=== PATIENT | female | born 1970 | race Caucasian/White ===

== ENCOUNTER 2021-11-13 12:40 | Emergency (ER) | payer OTHER, SELFPAY ==
[2021-11-13 12:46] VITALS: BP 144/81; PULSE 71; RESP 16; TEMP 36.6; O2SAT 100
--- NOTE | 2021-11-13 13:03 | ED.EAR ---
HPI - Ear Problem General Chief complaint: Ear Stated complaint: Ear Pain/Sore Throat Time Seen by Provider: 11/13/21 13:04 Source: patient Mode of arrival: ambulatory Limitations: no limitations History of Present Illness HPI Narrative: 51-year-old female presents with complaint of nasal congestion, runny nose, headache, body aches, right ear pain, sore throat for 2 to 3 days. States that she missed work yesterday. Had 2 negative COVID test so she returned to work this morning and he could only make it mcc through her shift. Reports that she is too tired to work today. Reports that she has had 4 people at her work that have tested positive for COVID. 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 Is taking Mucinex to treat her symptoms. All systems reviewed and negative except as noted above. Related Data Home Medications Medication Instructions Recorded Confirmed No Home Medications 11/13/21 11/13/21 Allergies Allergy/AdvReac Type Severity Reaction Status Date / Time Penicillins Allergy Unknown Swelling Verified 11/13/21 12:58 Review of Systems Review of Systems: CONSTITUTIONAL: Denies fever, chills, or sweats. Reports fatigue. EYES: Denies visual changes, redness, or discharge. ENT: Reports rhinorrhea, congestion, sore throat, and right ear pain CARDIOVASCULAR: Denies chest pain, palpitations, or edema. RESPIRATORY: Reports cough. Denies dyspnea. GASTROINTESTINAL: Denies abdominal pain, nausea, vomiting, or diarrhea. GENITOURINARY: Denies dysuria or hematuria. SKIN: Denies rash or itching. MUSCULOSKELETAL: Denies back pain, joint pain. Reports myalgia. NEUROLOGIC: Denies headache, numbness, or weakness. PSYCHIATRIC: Denies anxiety or depression. All other systems reviewed are negative, except as documented in HPI. [facility] Past Medical History Medical History (Updated 11/14/21 @ 00:00 by Background Daemon) Depression Surgical History Surgical History (Updated 04/28/19 @ 19:35 by Marlene Varela NP) H/O tubal ligation Social History Social History (Updated 04/28/19 @ 19:37 by Marlene Varela NP) Smoking packs per day: 0.5 Smoking cigarettes per day: 10.0 Smoking status: Current every day smoker Comments At time of signature, agree with nursing past medical, surgical, social and family history. There is no relevant family history pertinent to the presenting complaint. Exam Narrative: GENERAL: This is a well-nourished, well-developed patient. Patient is ill-appearing but in no distress. HEAD: normocephalic, atraumatic. EYES: PERRL. Sclera clear/white. Vision is grossly intact. EARS: External ears normal, auditory canals clear and without drainage, TMs normal without perforation. Hearing grossly intact. NOSE: External nose normal with clear nasal drainage. Mild congestion with erythema to both nares. THROAT: Mucous membranes moist, mild erythema to posterior pharynx with clear postnasal drainage. NECK: Neck supple, non-tender without lymphadenopathy, masses or thyromegaly. CARDIOVASCULAR: Regular rate and rhythm without murmurs, gallops, or rubs. RESPIRATORY: Clear to auscultation. Breath sounds equal bilaterally. No wheezes, rales, or rhonchi. SKIN: warm, Dry, intact with no suspicious lesions or rash, good texture and turgor. NEURO: awake, alert, and oriented to person, place and time. There were no obvious focal neurologic abnormalities. EXTREMITIES: No joint tenderness, effusion, or edema noted. Course Course Level of Care: Express Care Visit Vital Signs Vital signs: Vital Signs Temperature 36.6 C 11/13/21 12:46 Pulse Rate 71 11/13/21 12:46 Respiratory Rate 16 11/13/21 12:46 Blood Pressure 144/81 H 11/13/21 12:46 Pulse Oximetry 100 11/13/21 12:46 Oxygen Delivery Room Air 11/13/21 12:46 Temperature 36.6 C 11/13/21 12:46 Pulse Rate 71 11/13/21 12:46 Respiratory Rate 16 11/13/21 12:46 Blood Pressure 144/81 H
== END 2021-11-13 13:44 | disposition home or self-care (01) ==
PROVIDERS: Emergency Provider Nurse Practitioner Family
DX: J06.9 Acute upper respiratory infection, unspecified (principal); Z20.822 Contact with and (suspected) exposure to COVID-19; F17.210 Nicotine dependence, cigarettes, uncomplicated
CPT/HCPCS: 87426; 99213; C9803; G0463

== ENCOUNTER 2022-07-01 08:43 | Outpatient (CLI) | payer OTHER, SELFPAY ==
[2022-07-01 18:44] LABS: Basophils Percent Auto 0.5 % (0.2-1.2); Eosinophils Absolute Auto 0.1 K/mm3 (0-0.3); Eosinophils Percent Auto 2.1 % (0-4.4); Hematocrit 43.8 % (37.0-47.0); Hemoglobin 14.1 g/dL (12.0-15.0); Immature Granulocyte Absolute 0.02 K/mm3 (0.00-0.031); Immature Granulocyte Percent A 0.3 % (0-0.5); Lymphocytes Absolute Auto 1.29 K/mm3 (0.9-3.2); Lymphocytes Percent Auto 22.1 % (18.3-44.2); Mean Corpuscular HGB Conc 32.2 g/dl (32-36); Mean Corpuscular Hemoglobin 31.4 pg (26-34); Mean Corpuscular Volume 97.6 fl (80-100); Mean Platelet Volume 12.2 fl (7.4-10.4); Monocytes Absolute Auto 0.4 K/mm3 (0.1-0.6); Monocytes Percent Auto 7.2 % (2.6-8.5); Neutrophils Percent Auto 67.8 % (45.5-73.1); Platelet Count Result 199 k/mm3 (150-375); Red Blood Count 4.49 M/mm3 (4.2-5.4); Red Cell Distribution Width 14.5 % (11.5-14.5); White Blood Count 5.9 K/mm3 (4.5-10.0)
[2022-07-01 18:55] LABS: Alanine Aminotransferase 13 U/L (6-35); Albumin Level 4.3 g/dL (3.5-5.1); Alkaline Phosphatase 89 U/L (38-126); Anion Gap 3 mmol/L (8-16); Aspartate Amino Transferase 40 U/L (14-36); Bilirubin,Total 0.4 mg/dL (0.2-1.3); Blood Urea Nitrogen 8 mg/dL (7-17); Calcium 9.1 mg/dL (8.4-10.2); Carbon Dioxide 30 mmol/L (22-30); Chloride 103 mmol/L (98-107); Cholesterol 210 mg/dL (0-200); Estimated Glomerular Filt Rate 59; Glucose 87 mg/dL (65-110); HDL Direct 34 mg/dL; Potassium 4.3 mmol/L (3.4-5.0); Sodium 136 mmol/L (137-145); Triglycerides 140 mg/dL (<150)
[2022-07-01 19:06] LABS: LDL Cholesterol Direct 106 mg/dL
== END 2022-07-01 08:44 | disposition home or self-care (01) ==
LOC: ANHBWCLAB 08:44
PROVIDERS: PCP Family Medicine; Visit Provider Family Medicine
DX: Z00.00 Encounter for general adult medical examination without abnormal findings (principal)
CPT/HCPCS: 36415; 80053; 80061; 85025

== ENCOUNTER 2022-12-30 09:16 | Outpatient (CLI) | payer OTHER, SELFPAY ==
[2022-12-30 19:01] LABS: Appearance Urine Cloudy (Clear); Bacteria Urine 4+ /hpf; Bilirubin Urine Negative (Negative); Blood Urine 2+ (Negative); Color Urine Yellow (Yellow); Glucose Urine UA Negative (Negative); Ketones Urine Negative (Negative); Leukocyte Esterase Ur 3+ LEU/UL (NEGATIVE); Nitrate Urine Negative (Negative); Non Pathogenic Casts 0-2; Protein Urine Negative (Negative); RBC Urine 0-2 /hpf (0-2); Specific Grav Ur 1.008 (1.001-1.035); Squamous Epithelial Cell Urine None seen /hpf (Few); Urobilinogen Urine 0.2 mg/dL (<2.0); WBC Urine >100 /hpf (0-3); pH Urine 6.5 (5.0-9.0)
[2022-12-30 19:07] LABS: Add Urine Microscopic? YES
== END 2022-12-30 09:17 | disposition home or self-care (01) ==
LOC: ANHBWCLAB 09:17
PROVIDERS: PCP Family Medicine; Visit Provider Nurse Practitioner Adult Health
DX: R39.9 Unspecified symptoms and signs involving the genitourinary system (principal)
CPT/HCPCS: 81001

== ENCOUNTER 2023-10-13 08:25 | Outpatient (CLI) | payer OTHER, SELFPAY ==
[2023-10-13 19:11] LABS: Alanine Aminotransferase 12 U/L (6-35); Albumin Level 4.1 g/dL (3.5-5.1); Alkaline Phosphatase 80 U/L (38-126); Anion Gap 2 mmol/L (4-12); Aspartate Amino Transferase 58 U/L (14-36); Bilirubin,Total 0.5 mg/dL (0.2-1.3); Blood Urea Nitrogen 13 mg/dL (7-17); Calcium 8.8 mg/dL (8.4-10.2); Carbon Dioxide 28 mmol/L (22-30); Chloride 108 mmol/L (98-107); Cholesterol 199 mg/dL (0-200); Estimated Glomerular Filt Rate 59; Glucose 86 mg/dL (65-110); HDL Direct 37 mg/dL; Potassium 4.2 mmol/L (3.4-5.0); Sodium 138 mmol/L (137-145); Triglycerides 90 mg/dL (<150)
[2023-10-13 19:22] LABS: LDL Cholesterol Direct 120 mg/dL
[2023-10-13 19:48] LABS: Basophils Percent Auto 0.4 % (0.2-1.2); Eosinophils Absolute Auto 0.2 K/mm3 (0-0.3); Eosinophils Percent Auto 3.5 % (0-4.4); Hematocrit 40.5 % (37.0-47.0); Hemoglobin 12.9 g/dL (12.0-15.0); Immature Granulocyte Absolute 0.01 K/mm3 (0.00-0.031); Immature Granulocyte Percent A 0.2 % (0-0.5); Lymphocytes Absolute Auto 1.08 K/mm3 (0.9-3.2); Lymphocytes Percent Auto 23.3 % (18.3-44.2); Mean Corpuscular HGB Conc 31.9 g/dl (32-36); Mean Corpuscular Volume 97.4 fl (80-100); Mean Platelet Volume 11.7 fl (7.4-10.4); Monocytes Absolute Auto 0.4 K/mm3 (0.1-0.6); Monocytes Percent Auto 7.8 % (2.6-8.5); Neutrophils Percent Auto 64.8 % (45.5-73.1); Platelet Count Result 195 k/mm3 (150-375); Red Blood Count 4.16 M/mm3 (4.2-5.4); Red Cell Distribution Width 14.6 % (11.5-14.5); White Blood Count 4.6 K/mm3 (4.5-10.0)
[2023-10-13 20:14] LABS: Folic Acid 16.1 ng/mL (2.76->20)
[2023-10-13 21:03] LABS: Erythrocyte Sedimentation Rate 20 mm/hr (0-20)
[2023-10-15 13:53] LABS: ANA Cascade Screen POSITIVE (NEGATIVE); Chromatin (Nucleosomal) Ab >8.0 POS AI (<1.0 NEG); Chromatin Antibody Charge YES; DNA (ds) Antibody Charge YES; RNP Antibody >8.0 POS AI (<1.0 NEG); RNP Antibody Charge YES; Sm Antibody >8.0 POS AI (<1.0 NEG); Sm Antibody Charge YES; Sm/RNP Antibody >8.0 POS AI (<1.0 NEG); Sm/RNP Antibody Charge YES
== END 2023-10-13 08:26 | disposition home or self-care (01) ==
LOC: ANHBWCLAB 08:27
PROVIDERS: PCP Nurse Practitioner Adult Health; Visit Provider Nurse Practitioner Adult Health
DX: Z13.9 Encounter for screening, unspecified (principal); I73.00 Raynaud's syndrome without gangrene
CPT/HCPCS: 36415; 80053; 80061; 82607; 82746; 84443; 85025; 85652; 86038; 86225; 86235; 86364

== ENCOUNTER 2023-11-10 07:47 | Outpatient (CLI) | payer OTHER, SELFPAY ==
--- NOTE | ~2023-11-10 | XR_ITS ---
Right wrist Technique: PA and lateral views were obtained. Clinical History: Joint pain Findings: No acute fracture or dislocation is seen. Osseous alignment is anatomic. Joint spaces are p reserved. Soft tissues are unremarkable. Impression: Unremarkable right wrist radiographs. Reviewed, dictated and finalized at location M. Impression: Unremarkable right wrist radiographs.
--- NOTE | ~2023-11-10 | XR_ITS ---
Left ankle Technique: AP and lateral views were obtained. Clinical History: Pain Findings: No acute fracture or dislocation is seen. Osseous alignment is anatomic. Ankle mortise and other visualized joint spaces are preserved. Soft tissues are otherwise unremarkable. Impression: Unremarkable left ankle. Reviewed, dictated and finalized at location . Impression: Unremarkable left ankle.
--- NOTE | ~2023-11-10 | XR_ITS ---
Right Hand Technique: PA and lateral views were obtained. Clinical History: Joint pain Findings: No acute fracture or dislocation is seen. Osseous alignment is anatomic. Joint spaces are p reserved. Soft tissues are unremarkable. Impression: Unremarkable right hand. Reviewed, dictated and finalized at location M. Impression: Unremarkable right hand.
--- NOTE | ~2023-11-10 | XR_ITS ---
Right foot Technique: AP and lateral views were obtained. Clinical History: Joint pain Findings: No acute fracture or dislocation is seen. Osseous alignment is anatomic. Joint spaces are p reserved without erosive or degenerative change. Soft tissues are unremarkable. Impression: Unremarkable right foot radiographs. Reviewed, dictated and finalized at location . Impression: Unremarkable right foot radiographs.
--- NOTE | ~2023-11-10 | XR_ITS ---
Left wrist Technique: PA and lateral views were obtained. Clinical History: Joint pain Findings: No acute fracture or dislocation is seen. Osseous alignment is anatomic. There is mild dege nerative change of the first CMC joint. Soft tissues are unremarkable. Impression: Mild degenerative change of the first CMC joint. Reviewed, dictated and finalized at location . Impression: Mild degenerative change of the first CMC joint.
--- NOTE | ~2023-11-10 | XR_ITS ---
AP and oblique views of the bilateral SI joints Clinical history joint pain FINDINGS: There is probable mild osteophytic changes bilateral SI joints. No erosive change or sclero sis. Bilateral hip joints are intact. Soft tissues are unremarkable. IMPRESSION: Mild degenerative change of both SI joints. Reviewed, dictated and finalized at location .
--- NOTE | ~2023-11-10 | XR_ITS ---
Right ankle Technique: AP and lateral views were obtained. Clinical History: Joint pain Findings: No acute fracture or dislocation is seen. Osseous alignment is anatomic. Ankle mortise and other visualized joint spaces are preserved. Soft tissues are otherwise unremarkable. Impression: Unremarkable right ankle. Reviewed, dictated and finalized at location . Impression: Unremarkable right ankle.
--- NOTE | ~2023-11-10 | XR_ITS ---
Left foot Technique: AP and lateral views were obtained. Clinical History: Joint pain Findings: No acute fracture or dislocation is seen. Osseous alignment is anatomic. Joint spaces are p reserved without erosive or degenerative change. Soft tissues are unremarkable. Impression: Unremarkable left foot radiographs. Reviewed, dictated and finalized at location . Impression: Unremarkable left foot radiographs.
[2023-11-10 19:19] LABS: Basophils Percent Auto 0.5 % (0.2-1.2); Eosinophils Absolute Auto 0.2 K/mm3 (0-0.3); Eosinophils Percent Auto 3.7 % (0-4.4); Hematocrit 42.7 % (37.0-47.0); Hemoglobin 13.8 g/dL (12.0-15.0); Immature Granulocyte Absolute 0.01 K/mm3 (0.00-0.031); Immature Granulocyte Percent A 0.2 % (0-0.5); Lymphocytes Absolute Auto 1.38 K/mm3 (0.9-3.2); Lymphocytes Percent Auto 24.2 % (18.3-44.2); Mean Corpuscular HGB Conc 32.3 g/dl (32-36); Mean Corpuscular Hemoglobin 31.2 pg (26-34); Mean Corpuscular Volume 96.4 fl (80-100); Mean Platelet Volume 11.9 fl (7.4-10.4); Monocytes Absolute Auto 0.4 K/mm3 (0.1-0.6); Neutrophils Absolute Auto 3.7 K/mm3 (1.3-6.7); Neutrophils Percent Auto 64.4 % (45.5-73.1); Platelet Count Result 201 k/mm3 (150-375); Red Blood Count 4.43 M/mm3 (4.2-5.4); Red Cell Distribution Width 14.3 % (11.5-14.5); White Blood Count 5.7 K/mm3 (4.5-10.0)
[2023-11-10 19:19] LABS: Appearance Urine Clear (Clear); Bilirubin Urine Negative (Negative); Blood Urine Negative (Negative); Color Urine Yellow (Yellow); Glucose Urine UA Negative (Negative); Ketones Urine Negative (Negative); Leukocyte Esterase Ur Negative LEU/UL (Negative); Nitrate Urine Negative (Negative); Protein Urine Negative (Negative); Specific Grav Ur 1.016 (1.001-1.035); Urobilinogen Urine 0.2 mg/dL (<2.0); pH Urine 5.5 (5.0-9.0)
[2023-11-10 19:20] LABS: Add Urine Microscopic? NO
[2023-11-10 19:29] LABS: Alanine Aminotransferase 14 U/L (6-35); Albumin Level 4.3 g/dL (3.5-5.1); Alkaline Phosphatase 83 U/L (38-126); Anion Gap 5 mmol/L (4-12); Aspartate Amino Transferase 35 U/L (14-36); Bilirubin,Total 0.3 mg/dL (0.2-1.3); Blood Urea Nitrogen 13 mg/dL (7-17); CRP < 0.5 mg/dL (<1.0); Calcium 9.1 mg/dL (8.4-10.2); Carbon Dioxide 28 mmol/L (22-30); Chloride 106 mmol/L (98-107); Creatine Kinase 61 U/L (30-135); Estimated Glomerular Filt Rate > 60; Glucose 84 mg/dL (65-110); Sodium 139 mmol/L (137-145); Uric Acid 4.3 mg/dL (2.5-7.5)
[2023-11-10 20:04] LABS: Erythrocyte Sedimentation Rate 14 mm/hr (0-20)
[2023-11-10 20:15] LABS: Hepatitis B Surface Anti Res Negative; Hepatitis C Virus Antibody Negative (Negative)
[2023-11-11 01:08] LABS: Complement C3 91 mg/dL (88-165)
[2023-11-11 12:22] LABS: ANA Cascade Screen POSITIVE (NEGATIVE); Chromatin (Nucleosomal) Ab >8.0 POS AI (<1.0 NEG); Chromatin Antibody Charge YES; DNA (ds) Antibody Charge YES; RNP Antibody >8.0 POS AI (<1.0 NEG); RNP Antibody Charge YES; Sm Antibody >8.0 POS AI (<1.0 NEG); Sm Antibody Charge YES; Sm/RNP Antibody >8.0 POS AI (<1.0 NEG); Sm/RNP Antibody Charge YES
[2023-11-11 14:44] LABS: Aldolase 3.2 U/L (< OR = 8.1)
[2023-11-12 13:46] LABS: Rapid Plasma Reagin Non-Reactive (NonReactive)
[2023-11-23 07:10] LABS: Reference Lab Test Name RNA Polymerase III
[2023-11-23 07:11] LABS: Reference Lab Test Result <20 Units
== END 2023-11-10 07:48 | disposition home or self-care (01) ==
PROVIDERS: PCP Nurse Practitioner Adult Health; Visit Provider Internal Medicine
DX: M46.1 Sacroiliitis, not elsewhere classified (principal); M19.042 Primary osteoarthritis, left hand; M19.032 Primary osteoarthritis, left wrist
CPT/HCPCS: 36415; 72202; 73100; 73120; 73600; 73620; 80053; 81003; 82085; 82550; 84550; 85025; 85652; 86038; 86140; 86160; 86225; 86235; 86364; 86592; 86706; 86803

== ENCOUNTER 2023-12-11 00:20 | Day surgery (SDC) | payer OTHER, SELFPAY ==
--- NOTE | 2023-11-10 14:35 | SUR.PREOP ---
Patient called to reschedule her procedure due to doctor being unavailable. Message left on pt's vm requesting a call back.
--- NOTE | 2023-11-13 09:35 | SUR.PREOP ---
Patient called to reschedule her appointment. Message left for patient to return call.
--- NOTE | 2023-11-16 10:00 | SUR.PREOP ---
Called patient regarding her procedure on 12/17. Message left requesting a call back.
--- NOTE | 2023-11-19 11:48 | SUR.PREOP ---
Message sent through the portal asking pt to call us so we can reschedule her appointment.
[2023-11-24 14:02] VITALS: BMI 25.4
[2023-12-11] MEDS: LACTATED RINGERS 1,000 ML 150 ML IV CONT (07:48)
[2023-12-11 07:50] VITALS: BP 121/95; PULSE 84; RESP 16; TEMP 36.3; O2SAT 100
--- NOTE | 2023-12-11 08:21 | WPDANESEPPF ---
Anes - Initial Pre Proc Eval Procedure: Operation Date: 12/11/23 09:00 Proposed Procedures p Esophagogastroduodenoscopy - Oskar Lei MD Date/Time: 12/11/23 08:21 Surgeon: Oskar Lei MD Pre Op Diagnosis: GERD without esophagitis Patient Data Age: 53 Gender: F Height: 1.75 m Weight: 77 kg Last Vital Signs Temp 97.4 F L 12/11/23 07:50 Pulse 84 12/11/23 07:50 Resp 16 12/11/23 07:50 BP 121/95 H 12/11/23 07:50 Pulse Ox 100 12/11/23 07:50 O2 Del Method Room Air 12/11/23 07:50 Allergies Allergy/AdvReac Type Severity Reaction Status Date / Time Penicillins Allergy Severe Swelling Verified 12/11/23 07:49 Home Medications Medication Instructions Recorded Confirmed Type Multi Vitamin 1 tab-cap BYMOUTH DAILY 07/01/22 11/24/23 History pantoprazole 40 mg tablet,delayed 40 mg PO QAM #30 tabs 06/09/23 11/24/23 Rx release (Protonix) Patient hx anesthesia problems: none Family hx anesthesia problems: none Results Review: All pre-operative results and documents have been reviewed as part of the pre-operative evaluation. [facility] Past Medical History Medical History (Updated 10/15/23 @ 14:13 by Rachna Lema APRN) Depression Surgical History Surgical History (System 05/15/22 @ 14:23 by Maria Ines Amezcua) H/O tubal ligation Family History Family History (Updated 07/01/22 @ 07:56 by Chaya Prince MA) Father Hypertension Depression Heart disease Mother Depression Heart disease Epilepsy Grandparent Diabetes mellitus Cancer Social History Social History (Updated 07/01/22 @ 07:58 by Chaya Prince MA) Smoking packs per day: 0.5 Smoking cigarettes per day: 10.0 Years smoked: 25 Smoking pack-years: 12.50 Smoking status: Current every day smoker Tobacco type: cigarettes Alcohol intake: current Alcohol use details: once a month Substance use: never Substance use type: does not use Lack of Transportation: No Lack of Food: Never True Current Housing: I Have Housing Concerned About Future Housing: No Difficulty Paying Gas/Electric Bills: No Difficulty Paying for Meds: No Currently Unemployed: No Education: Trade/Vocational Certificate Difficulty w/ Childcare or Family Care: No Living arrangements: with family Occupation/Education: occupation 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 Gender identity (if verbalized by the patient): Female Spiritual care concerns: No Agree to blood products: Yes Anes - Eval Final PreProcedure Day of Procedure 12/11/23 08:21 Patient weight: normal Heart: regular rate and rhythm Lungs: clear to auscultation Airway: Mallampati scale class II Neurological: alert and oriented Last oral intake: >/= 8 hours ASA classification: III Emergent: no Anesthetic plan: proceed Anesthesia type and monitoring: general GIVS and standard monitoring Results Review: All pre-operative results and documents have been reviewed as part of the pre-operative evaluation. Informed Consent: The patient's anesthetic plan and its attendant risks and benefits were discussed with the patient/family/POA. Questions were solicited and answers provided to the satisfaction of the patient/family/POA.
--- NOTE | 2023-12-11 08:22 | PM.HPGS ---
History of Present Illness History of Present Illness Consent: Risks, benefits, and alternatives have been discussed and questions answered. Patient agrees to proceed with procedure. Chief complaint: GERD without esophagitis Narrative: Yuliana Nogueira is a 53 year old female with gerd for over a year but last few months more symptomatic waking up at night despite using protonix daily, never had egd Review of Systems Review of Systems: All systems reviewed & are unremarkable except as noted in HPI and below PMFSH Past Medical History Medical History (Updated 10/15/23 @ 14:13 by Rachna Lema APRN) Depression Surgical History Surgical History (System 05/15/22 @ 14:23 by Maria Ines Amezcua) H/O tubal ligation Family History Family History (Updated 07/01/22 @ 07:56 by Chaya Prince MA) Father Hypertension Depression Heart disease Mother Depression Heart disease Epilepsy Grandparent Diabetes mellitus Cancer Social History Social History (Updated 07/01/22 @ 07:58 by Chaya Prince MA) Smoking packs per day: 0.5 Smoking cigarettes per day: 10.0 Years smoked: 25 Smoking pack-years: 12.50 Smoking status: Current every day smoker Tobacco type: cigarettes Alcohol intake: current Alcohol use details: once a month Substance use: never Substance use type: does not use Lack of Transportation: No Lack of Food: Never True Current Housing: I Have Housing Concerned About Future Housing: No Difficulty Paying Gas/Electric Bills: No Difficulty Paying for Meds: No Currently Unemployed: No Education: Trade/Vocational Certificate Difficulty w/ Childcare or Family Care: No Living arrangements: with family Occupation/Education: occupation 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 Gender identity (if verbalized by the patient): Female Spiritual care concerns: No Agree to blood products: Yes Meds Home Medications and Allergies Home Medications Medication Instructions Recorded Confirmed Type Multi Vitamin 1 tab-cap BYMOUTH DAILY 07/01/22 11/24/23 History pantoprazole 40 mg tablet,delayed 40 mg PO QAM #30 tabs 06/09/23 11/24/23 Rx release (Protonix) Allergies Allergy/AdvReac Type Severity Reaction Status Date / Time Penicillins Allergy Severe Swelling Verified 12/11/23 07:49 Vital Signs Vital Signs - 24 hr 12/11/23 07:50 Temperature 97.4 F L Pulse Rate 84 Respiratory Rate 16 Blood Pressure 121/95 H Pulse Oximetry 100 Oxygen Delivery Room Air Exam Const: General: comfortable and no acute distress HENMT: Face/Nose/Sinus: Normal nares present Eyes: General: appearance normal, both eyes and all related structures Neck: Neck: no JVD Resp: Auscultation: clear to auscultation bilaterally Cardio: Rate: regular rate Rhythm: regular rhythm GI: Inspection: non-distended GI Palp: Yes Soft to palpation Skin: General skin exam: normal color Neuro: General: gait normal Speech: normal speech Extrem: General: normal to inspection Psych: Mental Status: mental status grossly normal Assessment and Plan Assessment and plan (1) Gastroesophageal reflux disease: Code(s): K21.9 - Gastro-esophageal reflux disease without esophagitis Status: Acute Assessment and Plan: egd, already on ppi daily
[2023-12-11 08:31] VITALS: BP 112/72; PULSE 69; RESP 19; O2SAT 100
[2023-12-11 08:41] VITALS: BP 103/68; PULSE 65; RESP 18; O2SAT 98
[2023-12-11 08:51] VITALS: BP 121/82; PULSE 68; RESP 22; O2SAT 98
== END 2023-12-11 09:05 | disposition home or self-care (01) ==
PROVIDERS: PCP Nurse Practitioner Adult Health; Visit Provider Internal Medicine Gastroenterology
PROC: 0DJ08ZZ Inspection of Upper Intestinal Tract, Via Natural or Artificial Opening Endoscopic (ICD-10-PCS; CPT 43235; principal; 2023-12-11 09:00)
DX: K29.70 Gastritis, unspecified, without bleeding (principal); K44.9 Diaphragmatic hernia without obstruction or gangrene; K21.9 Gastro-esophageal reflux disease without esophagitis; F17.210 Nicotine dependence, cigarettes, uncomplicated
CPT/HCPCS: 43239; 88305; J2704; J7120

== ENCOUNTER 2024-03-24 07:29 | Outpatient (CLI) | payer OTHER, SELFPAY ==
[2024-03-24 20:30] LABS: Free T4 Free Thyroxine 1.41 ng/mL (0.78-2.19)
[2024-03-28 09:07] LABS: Thyroid Peroxidase Antibodies 37 IU/mL (<9)
== END 2024-03-24 07:30 | disposition home or self-care (01) ==
LOC: ANHBWCLAB 07:30
PROVIDERS: PCP Nurse Practitioner Adult Health; Visit Provider Nurse Practitioner Adult Health
DX: R79.89 Other specified abnormal findings of blood chemistry (principal)
CPT/HCPCS: 36415; 84439; 84443; 86376

== ENCOUNTER 2024-03-24 16:27 | Outpatient (CLI) | payer OTHER, SELFPAY ==
--- NOTE | ~2024-03-24 | US_ITS ---
EXAMINATION: US thyroid DATE: 03/24/2024 17:20 INDICATION: Abnormal blood tests. Recent diagnosis of lupus. TECHNIQUE: Multiple ultrasound images of the thyroid were obtained. COMPARISON: None. FINDINGS: The right thyroid lobe measures 4.8 x 1.6 x 1.6 cm. The left thyroid lobe measures 4.2 x 1.3 x 1.5 c m. Wider than tall 3 mm solid hypoechoic TI-RADS 4 nodule with smooth margins and without echogenic foci. There is normal echotexture, echogenicity and vascular flow throughout the thyroid gland. Nor mal sized hypoechoic lymph node with central echogenic hilum along the inferior margin of the right t hyroid lobe which measures 3 mm in maximal short axis diameter. IMPRESSION: 1. 3 mm TI-RADS 4 left thyroid nodule which remains well below criteria for either biopsy or follow-u p. Reviewed, dictated and finalized at location B. 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 3 mm TI-RADS 4 left thyroid nodule which remains well below criteria for eit her biopsy or follow-up.
== END 2024-03-24 16:28 | disposition home or self-care (01) ==
PROVIDERS: PCP Nurse Practitioner Adult Health; Visit Provider Nurse Practitioner Adult Health
DX: R91.1 Solitary pulmonary nodule (principal); R79.89 Other specified abnormal findings of blood chemistry
CPT/HCPCS: 76536

== ENCOUNTER 2024-03-29 08:31 | Outpatient (CLI) | payer OTHER, SELFPAY ==
[2024-03-29 19:28] LABS: Albumin Level 4.1 g/dL (3.5-5.1); Anion Gap 3 mmol/L (4-12); Blood Urea Nitrogen 13 mg/dL (7-17); Calcium 9.2 mg/dL (8.4-10.2); Carbon Dioxide 28 mmol/L (22-30); Chloride 105 mmol/L (98-107); Estimated Glomerular Filt Rate 52; Glucose 90 mg/dL (65-110); Phosphorus 4.4 mg/dL (2.5-4.5); Potassium 4.1 mmol/L (3.4-5.0); Sodium 136 mmol/L (137-145)
== END 2024-03-29 08:32 | disposition home or self-care (01) ==
PROVIDERS: PCP Nurse Practitioner Adult Health; Visit Provider Nurse Practitioner Adult Health
DX: Z51.81 Encounter for therapeutic drug level monitoring (principal); Z79.899 Other long term (current) drug therapy
CPT/HCPCS: 36415; 80069

== ENCOUNTER 2024-06-16 16:11 | Outpatient (CLI) | payer OTHER, SELFPAY ==
--- OUTSIDE RECORDS SUMMARY | 2024-06-16 16:20 | XMS_ITS | Referral Summary ---
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 Office Visit [facility] [address] [place] [address] Nahid Wan MD Well woman exam (Primary Dx); Menopausal symptoms from Last 3 Months Allergies Active Allergy Reactions Criticality Noted Date Comments Penicillins Rash Reaction: Rash, Medications hydroxychloroqu ine (PLAQUENIL) 200 mg tablet Take 1 tablet (200 mg total) by mouth 2 (two) times a day 04/11/2024 Active minoxidiL (LONITEN) 2.5 mg tablet Take 1 tablet (2.5 mg total) by mouth daily 03/29/[address] (PROTONIX) 40 mg EC tablet Take 1 tablet (40 mg total) by mouth every 12 (twelve) hours 04/10/2024 Active cholecalciferol -soy isoflavone 2,000-64 unit-mg tablet Take by mouth A ctive cyanocobalamin (Vitamin B-12) 100 mcg tabletIndicatio ns:Prevention of Vitamin B12 Deficiency Take 1 tablet (100 mcg total) by mouth daily Active calcium carbonate-mag oxide 250-155 mg tablet Take by mouth Active omega-3 fatty acids-fish oil 300-1,000 mg capsule Take 2 capsules (2 g total) by mouth daily Active multivitamin with minerals tablet Take 1 tablet by mouth daily Active Active Problems Problem Noted Date Diagnosed Date Former smoker 05/10/2024 Anxiety 09/17/2013 Overview (08/08/2016): Anxiety Resolved Problems Problem Noted Date Diagnosed Date Resolved Date Smoking 1/2 pack a day or less 03/10/2023 05/10/2024 Overview (03/10/2023): 5 cig per day for many years. Encouraged to quit. Immunizations Name Administration Dates Next Due Compression Kinetics (J&J) SARS-CoV-2 Vaccination 07/09/2020 Pfizer SARS-CoV-2 Monovalent Vaccination (12+ Yrs) PURPLE 05/16/2021 Social History Tobacco Use Types Packs/Day Years Used Date Smoking Tobacco: Some Days Cigarettes Tobacco Cessation:Ready to Q uit: Not Asked; Counseling Given: Not Answered Comments:Smoking socially Alcohol Use Standard Drinks/Week Comments Yes 0 (1 standard drink = 0.6 oz pur e alcohol) PHQ-2 Answer Date Recorded PHQ-2 Total Score (If total score is 3 or more points, staff should administer the PHQ-9) 0 05/10/2024 Comments No Sex and Gender Information Value Date Recorded Sex Assigned at Not on file Legal Sex Female 12:51 PM SUPER[employer] Gender Identity Not on file Sexual Orientation Not on file Last Filed Vital Signs Vital Sign Reading Time Taken Comments Blood Pressure 126/84 05/10/2024 2:54 PM [employer] Pulse - - Temperature - - Respiratory Rate - - Oxygen Saturation - - Inhaled Oxygen Concentration - - Weight 78 kg (172 lb) 05/10/2024 2:54 PM [employer] Height 175.3 cm (5' 9 ) 05/10/2024 2:54 PM [employer] Body Mass Index 25.4 05/10/2024 2:54 PM [employer] Plan of Treatment Not on file Procedures Procedure Name Priority Date/Time Associated Diagnosis Comments PAP, REFLEX HPV Routine 05/10/2024 3:39 PM [employer] Well woman exam SCREENING MAMMOGRAM BILATERAL W SUNSHINE Schedule Routine, Read Routine (OP Routine) 07/06/2023 3:08 PM [employer] Visit for screening mammogram from Last 3 Months or Most Recently Relevant to Health Maintenance Results * Pap, reflex HPV (05/10/2024 3:39 PM [employer] SERVICES) [facility]IN[facility] INFORMATION: [facility] Comment:WELL WOMAN EXAM LMP [facility] Comment:09-02-23 Previous Pap [facility] Comment:NONE GIVEN Prev. Bx [facility] Comment:NONE GIVEN SOURCE: [facility] Comment:Cervix, Endocervix Pap, specimen adequacy [facility] Comment: Satisfactory for evaluation. Endocervical/transformation zone component present. HPV interp [facility] Comment: Cytology Results: Negative for intraepithelial lesion or malignancy. COMMENTS [facility] Comment: This Pap test has been evaluated with computer assisted technology. Religious Education Director [facility] Comment: AAM, CT(ASCP) CT Screening Location: [address] [place] [address] Review tent assembler [facility] Comment: AUC, CT(ASCP) CT Screening Location: [address] [address] Comment [facility] Comment: EXPLANATORY NOTE: The Pap is a screening test for cervical cancer. It is not a diagnostic test and is subject to false negative and false positive results. It is most reliable when a satisfactory sample, regularly obtained, is submitted with relevant clinical findings and history, and when the Pap result is evaluated along with historic and current clinical information. Thin prep 05/10/2024 3:39 PM [employer] SERVICES 05/12/2024 12:22 AM [employer] SERVICES us Nahid Wan MD LAB CYTOLOGY ORDERABLES Fi nal Result [facility] [address] * Screening Mammogram Bilateral W Sunshine (07/06/2023 3:08 PM [employer] SERVICES) Anatomical Region Laterality Modality Breast Bilateral Mammography 07/06/2023 3:14 PM [employer] Impressions 07/06/2023 3:14 PM [employer] SERVICES There is no mammographic evidence of malignancy. A 1 year screening mammogram is recommended. BI-RADS: 1 - Negative. The patient has been or will be contacted. The patient will be entered into a reminder system with a target due date of 1 year for her next mammogram. Electronically signed by: KENROY GARCIA Rosa 07/06/2023 3:14 PM [employer] EXAMINATION: SCREENING MAMMOGRAM BILATERAL W SUNSHINE ORDERING HEALTHCARE PROVIDER: NAHID WAN HISTORY: Routine screening mammography. COMPARISON: 05/29/2022, 05/26/2022, 04/23/2012. TECHNIQUE: CC and MLO views of both breasts were obtained with digital technique using digital breast tomosynthesis with C view. Computer aided detection was utilized. FINDINGS: DENSITY: The breasts are heterogeneously dense, which may obscure small masses. BREASTS: There is no new suspicious finding in either breast on mammogram. us Nahid Wan MD IMG MAMMO PROCEDURES Final Result from Last 3 Months or Most Recently Relevant to Health Maintenance Insurance [facility] CMR Care Teams Pulp Mill Operator Relationship Specialty Start Date End Date Terrence Miranda MD PCP - General Family Practice 06/09/23
--- OUTSIDE RECORDS SUMMARY | 2024-06-16 16:20 | XMS_ITS | Clinical Summary ---
Author Organization [facility] B Address [address] [place] [address] Care Team Providers Care Photographic Laboratory Technician Name Role Phone Terrence Miranda MD Primary Care Provider [phone] Allergies Active Allergy Reactions Criticality Noted Date [...] day for many years. Encouraged to quit. Encounters Date Type Department Care Team Description 05/10/2024 3:00 PM LOCKSTITCH FRONT MAKER Office Visit [facility] [address] [place] [address] [address], [place] [address] Nahid Wan MD Well woman exam (Primary Dx); Menopausal symptoms from Last 3 Months Immunizations Name Administration Dates Next Due [employer] (J&J) SARS-CoV-2 Vaccination 07/09/2020 Pfizer SARS-CoV-2 Monovalent Vaccination (12+ Yrs) PURPLE 05/16/2021 Surgical History Surgery Date Site/Laterality Comments TUBAL LIGATION 2008 BTL OTHER SURGICAL HISTORY 1994 : 5 hr labor OTHER SURGICAL HISTORY 1999 : 7 hr labor Medical History Medical History Date Comments Hx Other Medical 1994 ; Outc ome: 38 week 5 lb(s) 11 oz Male Hx Other Medical 1999 ; Outc ome: 41 week 7 lb(s) 10 oz Male Lupus anticoagulant disorder (HCC) RA (rheumatoid arthritis) (HCC) Family History Medical History Relation Name Comments Coronary artery disease Father Lizzette nary artery disease; Hyperlipidemia Father Hyperlipidemi a; Hypertension Father Hypertension; Breast cancer Father's Sister Diabetes Maternal Grandmother Diabete s mellitus; Rheumatic fever Mother Rheumatic fe shonna; Breast cancer Paternal Grandmother Colon cancer Neg Hx Ovarian cancer Neg Hx Uterine cancer Neg Hx Relation Name Status Comments Father Father's Sister Maternal Grandmother Mother Paternal Grandmother Social History Tobacco Use Types Packs/Day Years [...] on file Legal Sex Female 12:51 PM LOCKSTITCH FRONT MAKER Gender Identity Not on file Sexual Orientation Not on file Obstetrics History Para Term AB IAB SAB Ectopic Multiple Livin g Live Births 2 2 1 1 0 0 0 0 0 2 2 Date Outcome GA Total Labor Labor/2nd/3rd Weight Sex Type Anes PTL Paula A1 A5 Name Clin 1994 34w 0d M Vag-S pont Living 0 Term 40w 0d M Vag-S pont Living Last Filed Vital Signs Vital Sign Reading Time Taken Comments Blood Pressure 126/84 05/10/2024 2:54 PM LOCKSTITCH FRONT MAKER Pulse - - Temperature - - Respiratory Rate - - Oxygen Saturation - - Inhaled Oxygen Concentration - - Weight 78 kg (172 lb) 05/10/2024 2:54 PM LOCKSTITCH FRONT MAKER Height 175.3 cm (5' 9 ) 05/10/2024 2:54 PM LOCKSTITCH FRONT MAKER Body Mass Index 25.4 05/10/2024 2:54 PM LOCKSTITCH FRONT MAKER Plan of Treatment Health Maintenance Due Date Last Done Comments Colon Cancer Screening-Colonoscopy 1972 Hepatitis C Screening 1972 Pneumococcal vaccine <65 (1 of 2 - PCV) 1978 DTaP/Tdap/Td Vaccine (1 - Tdap) 10/25/1983 Hepatitis B Screening 1990 Zoster Vaccine (1 of 2) 10/25/1991 Covid-19 Vaccine (3 - season) 2024, 07/09/2020 Influenza Vaccine (#1) 2024 05/16/2021 Breast Cancer Screening-Mammogram 07/05/2024 024, 05/26/2022 Cervical Cancer Screening 05/10/20252024, 03/10/2023, 02/18/2022 Depression Screening 05/10/2025 05/10/2024 Regular Well Visit/Exam 18-64 05/10/2025, 03/10/2023, 02/18/2022 Procedures Procedure Name Priority Date/Time Associated Diagnosis Comments PAP, REFLEX HPV Routine 05/10/2024 3:39 PM LOCKSTITCH FRONT MAKER Well woman exam SCREENING MAMMOGRAM BILATERAL W SUNSHINE Schedule Routine, Read Routine (OP Routine) 07/06/2023 3:08 PM LOCKSTITCH FRONT MAKER Visit for screening mammogram from Last 3 Months or Most Recently Relevant to Health Maintenance Results * Pap, reflex HPV (05/10/2024 3:39 PM LOCKSTITCH FRONT MAKER) [facility]INICAL INFORMATION: [facility] Comment:WELL WOMAN EXAM LMP [facility] Comment:09-02-23 Previous Pap [facility] Comment:NONE GIVEN Prev. Bx [facility] Comment:NONE GIVEN SOURCE: [facility] Comment:Cervix, Endocervix Pap, specimen adequacy [facility] Comment: Satisfactory for evaluation. Endocervical/transformation zone component present. HPV interp [facility] Comment: Cytology Results: Negative for intraepithelial lesion or malignancy. COMMENTS [facility] [facility] Comment: This Pap test has been evaluated with computer assisted technology. Senior Clinical Research Scientist [facility] Comment: AAM, CT(ASCP) CT Screening Location: [address] [place] [address] Review cream dumper [facility] Comment: AUC, CT(ASCP) CT Screening Location: [address] [address] Comment [facility] Comment: EXPLANATORY NOTE: The Pap is a [...] clinical information. Thin prep 05/10/2024 3:39 PM LOCKSTITCH FRONT MAKER 05/12/2024 12:22 AM LOCKSTITCH FRONT MAKER us Nahid Wan MD LAB CYTOLOGY ORDERABLES Fi nal Result [facility] [address] [address] * Screening Mammogram Bilateral W Sunshine (07/06/2023 3:08 PM LOCKSTITCH FRONT MAKER) Anatomical Region Laterality Modality Breast Bilateral Mammography 07/06/2023 3:14 PM LOCKSTITCH FRONT MAKER Impressions 07/06/2023 3:14 PM LOCKSTITCH FRONT MAKER There is no mammographic evidence of malignancy. A 1 year screening mammogram is recommended. BI-RADS: 1 - Negative. The patient has been or will be contacted. The patient will be entered into a reminder system with a target due date of 1 year for her next mammogram. Electronically signed by: KENROY NAVARRODORENE Lee 07/06/2023 3:14 PM LOCKSTITCH FRONT MAKER EXAMINATION: SCREENING MAMMOGRAM BILATERAL W SUNSHINE ORDERING [...] Most Recently Relevant to Health Maintenance Insurance [facility] CMR Care Teams Photographic Laboratory Technician Relationship Specialty Start Date End Date Terrence Miranda MD PCP - General Family Practice 06/09/23
[2024-06-16 19:14] LABS: Basophils Percent Auto 0.8 % (0.2-1.2); Eosinophils Absolute Auto 0.2 K/mm3 (0-0.3); Eosinophils Percent Auto 3.1 % (0-4.4); Hematocrit 40.1 % (37.0-47.0); Hemoglobin 13.2 g/dL (12.0-15.0); Immature Granulocyte Absolute 0.01 K/mm3 (0.00-0.031); Immature Granulocyte Percent A 0.2 % (0-0.5); Lymphocytes Absolute Auto 1.51 K/mm3 (0.9-3.2); Lymphocytes Percent Auto 30.8 % (18.3-44.2); Mean Corpuscular HGB Conc 32.9 g/dl (32-36); Mean Corpuscular Hemoglobin 30.6 pg (26-34); Mean Corpuscular Volume 92.8 fl (80-100); Mean Platelet Volume 12.2 fl (7.4-10.4); Monocytes Absolute Auto 0.4 K/mm3 (0.1-0.6); Monocytes Percent Auto 7.9 % (2.6-8.5); Neutrophils Absolute Auto 2.8 K/mm3 (1.3-6.7); Neutrophils Percent Auto 57.2 % (45.5-73.1); Platelet Count Result 166 k/mm3 (150-375); Red Blood Count 4.32 M/mm3 (4.2-5.4); Red Cell Distribution Width 14.4 % (11.5-14.5); White Blood Count 4.9 K/mm3 (4.5-10.0)
[2024-06-16 19:39] LABS: Complement C3 86 mg/dL (88-165)
[2024-06-16 19:41] LABS: Alanine Aminotransferase 14 U/L (6-35); Albumin Level 4.1 g/dL (3.5-5.1); Alkaline Phosphatase 94 U/L (38-126); Anion Gap 6 mmol/L (4-12); Aspartate Amino Transferase 29 U/L (14-36); Bilirubin,Total 0.3 mg/dL (0.2-1.3); Blood Urea Nitrogen 16 mg/dL (7-17); CRP < 0.5 mg/dL (<1.0); Calcium 8.8 mg/dL (8.4-10.2); Carbon Dioxide 29 mmol/L (22-30); Chloride 103 mmol/L (98-107); Erythrocyte Sedimentation Rate 14 mm/hr (0-20); Estimated Glomerular Filt Rate 50; Glucose 92 mg/dL (65-110); Potassium 4.2 mmol/L (3.4-5.0); Sodium 138 mmol/L (137-145)
== END 2024-06-16 16:12 | disposition home or self-care (01) ==
PROVIDERS: PCP Nurse Practitioner Adult Health; Visit Provider Internal Medicine
DX: M32.9 Systemic lupus erythematosus, unspecified (principal)
CPT/HCPCS: 36415; 80053; 85025; 85652; 86140; 86160; 86225

== ENCOUNTER 2024-08-23 14:17 | Outpatient (CLI) | payer OTHER, SELFPAY ==
--- OUTSIDE RECORDS SUMMARY | 2024-08-23 16:31 | XMS_ITS | Referral Summary ---
Author Organization [facility] B Address [address] [place] [address] Care Team Providers Care Metalworking Instructor Name Role Phone Torey Rachna JULIO Primary Care Provider [phone] Encounters Date Type Department Care Team Description 06/21/2024 Results [facility] [address] [facility] [address] [facility] [address] [place] [address] Nahid Wan MD 06/21/2024 4:02 PM LINE CREW SUPERVISOR - 06/21/2024 11:59 PM LINE CREW SUPERVISOR Hospital Encounter [facility] [address] [place] [address] Screening mammogram, encounter for Discharge Disposition: Discharge to home or self care from Last 3 Months Allergies Active Allergy [...] for many years. Encouraged to quit. Immunizations Immunization Administration Dates Next Due [employer] (J&J) SARS-CoV-2 Vaccination 07/09/2020 Pfizer SARS-CoV-2 Monovalent [...] on file Legal Sex Female 12:51 PM LINE CREW SUPERVISOR Gender Identity Not on file Sexual Orientation Not on file Last Filed Vital Signs Vital Sign Reading Time Taken Comments Blood Pressure 126/84 05/10/2024 2:54 PM LINE CREW SUPERVISOR Pulse - - Temperature - - Respiratory Rate - - Oxygen Saturation - - Inhaled Oxygen Concentration - - Weight 78 kg (172 lb) 05/10/2024 2:54 PM LINE CREW SUPERVISOR Height 175.3 cm (5' 9 ) 05/10/2024 2:54 PM LINE CREW SUPERVISOR Body Mass Index 25.4 05/10/2024 2:54 PM LINE CREW SUPERVISOR Plan of Treatment Not on file Procedures Procedure Name Priority Date/Time Associated Diagnosis Comments SCREENING MAMMOGRAM BILATERAL W SUNSHINE Schedule Routine, Read Routine (OP Routine) 06/21/2024 4:11 PM LINE CREW SUPERVISOR Screening mammogram, encounter for PAP, REFLEX HPV Routine 05/10/2024 3:39 PM LINE CREW SUPERVISOR Well woman exam from Last 3 Months or Most Recently Relevant to Health Maintenance Results * Screening Mammogram Bilateral W Sunshine (06/21/2024 4:11 PM LINE CREW SUPERVISOR) Anatomical Region Laterality Modality Breast Bilateral Mammography Impressions 06/21/2024 4:49 PM LINE CREW SUPERVISOR BI-RADS ATLAS category (overall): 1 - Negative There is no mammographic evidence of malignancy. A 1 year screening mammogram is recommended. The patient has been or will be contacted. We recommend annual screening mammography for women at average risk of breast cancer beginning at age 40, based on guidelines of the [employer] (ACR Practice Parameter for the Performance of Screening and Diagnostic Mammography) and [employer]. For women with and elevated risk of breast cancer, please refer to the ACR Practice Parameter for specific screening recommendations. The patient will be entered into a reminder system with a target due date of 1 year for her next screening exam. Narrative 06/21/2024 4:49 PM LINE CREW SUPERVISOR Screening Mammogram Bilateral W Sunshine: 06/21/24 The study was acquired using full field digital technology and interpreted from soft copy. 2D digital mammographic views, as well as 3D digital tomosynthesis were performed in the CC and MLO projections. This study was resulted using Computer-Aided Detection (CAD). CLINICAL: Screening mammogram, encounter for. Medical history includes smoking. History of breast cancer in Paternal Grandmother, Father's Sister. COMPARISONS: 2023 and 2022 BREAST TISSUE: The breasts are heterogeneously dense, which may obscure small masses. FINDINGS: No suspicious masses, suspicious calcifications, or other suspicious findings are seen within either breast. There has been no suspicious change. us Self Screening Mammogram IMG MAMMO PROCEDURES Fi nal Result * Pap, reflex HPV (05/10/2024 3:39 PM LINE CREW SUPERVISOR) CLINICAL INFORMATION: [facility] Comment:WELL WOMAN EXAM LMP [facility] Comment:09-02-23 Previous Pap [facility] Comment:NONE GIVEN Prev. Bx [facility] Comment:NONE GIVEN SOURCE: [facility] Comment:Cervix, Endocervix Pap, specimen adequacy [facility] Comment: Satisfactory for evaluation. Endocervical/transformation zone component present. HPV interp [facility] Comment: Cytology Results: Negative for intraepithelial lesion or malignancy. COMMENTS [facility] Comment: This Pap test has been evaluated with computer assisted technology. Rehabilitation Counselor [facility] Comment: AAM, CT(ASCP) CT Screening Location: [place] [address] [place] [address] Review draw off worker [facility] Comment: AUC, CT(ASCP) CT Screening Location: [address] [address] Comment [facility] Comment: EXPLANATORY NOTE: The Pap is [...] clinical information. Thin prep 05/10/2024 3:39 PM LINE CREW SUPERVISOR 05/12/2024 12:22 AM LINE CREW SUPERVISOR Nahid Wan MD LAB CYTOLOGY ORDERABLES Fi nal Result [facility] [address] [place] [address] from Last 3 Months or Most Recently Relevant to Health Maintenance Insurance [facility] CMR Care Teams Metalworking Instructor Relationship Specialty Start Date End Date Rachna Lema NP [address] [place] [address] PCP - General Nurse Practitioner 06/21/24
--- OUTSIDE RECORDS SUMMARY | 2024-08-23 16:31 | XMS_ITS | Clinical Summary ---
Author Organization [facility] B Address [address] [place] [address] Care Team Providers Care Driver Examiner Name Role Phone Rachna Lema NP Primary Care Provider [phone] Allergies Active Allergy Reactions Criticality Noted Date [...] Date Type Department Care Team Description 06/21/2024 4:02 PM TILE SETTER APPRENTICE - 06/21/2024 11:59 PM TILE SETTER APPRENTICE Hospital Encounter [facility] [address] [place] [address] Screening mammogram, encounter for Discharge Disposition: Discharge to home or self care 06/21/2024 Results Follow-Up [facility] [address] [facility] [address] [place] [address] Nahid Wan MD from Last 3 Months Immunizations Immunization Administration Dates Next Due [email or web address] (J&J) SARS-CoV-2 Vaccination 07/09/2020 Pfizer SARS-CoV-2 Monovalent [...] lb(s) 10 oz Male Lupus anticoagulant disorder RA (rheumatoid arthritis) (HCC) Smoking Family History Medical History Relation Name Comments [...] on file Legal Sex Female 12:51 PM TILE SETTER APPRENTICE Gender Identity Not on file Sexual Orientation [...] Comments Blood Pressure 126/84 05/10/2024 2:54 PM TILE SETTER APPRENTICE Pulse - - Temperature - - Respiratory Rate - - Oxygen Saturation - - Inhaled Oxygen Concentration - - Weight 78 kg (172 lb) 05/10/2024 2:54 PM TILE SETTER APPRENTICE Height 175.3 cm (5' 9 ) 05/10/2024 2:54 PM TILE SETTER APPRENTICE Body Mass Index 25.4 05/10/2024 2:54 PM TILE SETTER APPRENTICE Plan of Treatment Health Maintenance Due Date Last Done Comments Colon Cancer Screening-Colonoscopy 1972 Hepatitis C Screening 1972 DTaP/Tdap/Td Vaccine (1 - Tdap) 10/25/1983 Hepatitis B Screening 1990 Pneumococcal vaccine <65 (1 of 2 - PCV) 10/25/1991 Zoster Vaccine (1 of 2) 10/25/1991 Covid-19 Vaccine (3 - season) 2024, 07/09/2020 Influenza Vaccine (Season Ended) 2025 05/16/19 22 Cervical Cancer Screening 05/10/20252024, 03/10/2023, 02/18/2022 Depression Screening 05/10/2025 05/10/2024 Regular Well Visit/Exam 18-64 05/10/2025, 03/10/2023, 02/18/2022 Breast Cancer Screening-Mammogram 06/21/2025 06/21/2024, 07/06/2023, 05/26/2022 Procedures Procedure Name Priority Date/Time Associated Diagnosis Comments SCREENING MAMMOGRAM BILATERAL W SUNSHINE Schedule Routine, Read Routine (OP Routine) 06/21/2024 4:11 PM TILE SETTER APPRENTICE Screening mammogram, encounter for PAP, REFLEX HPV Routine 05/10/2024 3:39 PM TILE SETTER APPRENTICE Well woman exam from Last 3 Months or Most Recently Relevant to Health Maintenance Results * Screening Mammogram Bilateral W Sunshine (06/21/2024 4:11 PM TILE SETTER APPRENTICE) Anatomical Region Laterality Modality Breast Bilateral Mammography Impressions 06/21/2024 4:49 PM TILE SETTER APPRENTICE BI-RADS ATLAS category (overall): 1 - Negative There is no mammographic evidence of malignancy. A 1 year screening mammogram is recommended. The patient has been or will be contacted. We recommend annual screening mammography for women at average risk of breast cancer beginning at age 40, based on guidelines of the [place] [employer] (ACR Practice Parameter for the Performance of Screening and Diagnostic Mammography) and [place] [employer]. For women with and elevated risk of breast cancer, please refer to the ACR Practice Parameter for specific screening recommendations. The patient will be entered into a reminder system with a target due date of 1 year for her next screening exam. Narrative 06/21/2024 4:49 PM TILE SETTER APPRENTICE Screening Mammogram Bilateral W Sunshine: 06/21/24 The [...] * Pap, reflex HPV (05/10/2024 3:39 PM TILE SETTER APPRENTICE) CLINICAL INFORMATION: [facility] Comment:WELL WOMAN EXAM LMP [facility] Comment:09-02-23 Previous Pap [facility] Comment:NONE GIVEN Prev. Bx [facility] Comment:NONE GIVEN SOURCE: [facility] Comment:Cervix, Endocervix Pap, specimen adequacy [facility] Comment: Satisfactory for evaluation. Endocervical/transformation zone component present. HPV interp [facility] Comment: Cytology Results: Negative for intraepithelial lesion or malignancy. COMMENTS [facility] Comment: This Pap test has been evaluated with computer assisted technology. Blanket Cutting Machine Operator [facility] Comment: AAM, CT(ASCP) CT Screening Location: [place] [address] [place] [address] Review composite assembler [facility] Comment: AUC, CT(ASCP) CT Screening Location: [address] [address] Comment [facility] Comment: EXPLANATORY NOTE: The Pap is [...] clinical information. Thin prep 05/10/2024 3:39 PM TILE SETTER APPRENTICE 05/12/2024 12:22 AM TILE SETTER APPRENTICE Nahid Wan MD LAB CYTOLOGY ORDERABLES Fi nal Result [facility] [address] [place] [address] from Last 3 Months or Most Recently Relevant to Health Maintenance Insurance [facility] CMR Care Teams Driver Examiner Relationship Specialty Start Date End Date Rachna Lema NP [address] [place] [address] PCP - General Nurse Practitioner 06/21/24
[2024-08-23 20:19] LABS: Free T3 3.13 pg/mL (2.71-6.16); Total Triiodothyronine (T3) 1.15 NG/ML (0.97-1.69)
== END 2024-08-23 14:18 | disposition home or self-care (01) ==
PROVIDERS: PCP Nurse Practitioner Adult Health; Visit Provider Nurse Practitioner Adult Health
DX: R76.8 Other specified abnormal immunological findings in serum (principal)
CPT/HCPCS: 36415; 84439; 84443; 84480; 84481

== ENCOUNTER 2024-09-15 08:02 | Outpatient (CLI) | payer OTHER, SELFPAY ==
--- OUTSIDE RECORDS SUMMARY | 2024-09-15 08:08 | XMS_ITS | Clinical Summary ---
Author Organization [facility] B Address [address] [place] [address] Care Team Providers Care Personnel Scheduler Name Role Phone Rachna Lema NP Primary Care Provider [phone] Allergies Active Allergy Reactions Criticality Noted Date [...] Department Care Team Description 06/21/2024 4:02 PM SHINE WORKER - 06/21/2024 11:59 PM SHINE WORKER Hospital Encounter [facility] [address] [place] [address] Screening mammogram, encounter for Discharge Disposition: Discharge to home or self care 06/21/2024 Results Follow-Up [facility] [address] [place] [address] Nahid Wan MD from Last 3 Months Immunizations Immunization Administration Dates Next Due [employer] (J&J) SARS-CoV-2 Vaccination 07/09/2020 Pfizer SARS-CoV-2 Monovalent [...] on file Legal Sex Female 12:51 PM SHINE WORKER Gender Identity Not on file Sexual Orientation [...] Comments Blood Pressure 126/84 05/10/2024 2:54 PM SHINE WORKER Pulse - - Temperature - - Respiratory Rate - - Oxygen Saturation - - Inhaled Oxygen Concentration - - Weight 78 kg (172 lb) 05/10/2024 2:54 PM SHINE WORKER Height 175.3 cm (5' 9 ) 05/10/2024 2:54 PM SHINE WORKER Body Mass Index 25.4 05/10/2024 2:54 PM SHINE WORKER Plan of Treatment Health Maintenance Due Date [...] Read Routine (OP Routine) 06/21/2024 4:11 PM SHINE WORKER Screening mammogram, encounter for PAP, REFLEX HPV Routine 05/10/2024 3:39 PM SHINE WORKER Well woman exam from Last 3 Months or Most Recently Relevant to Health Maintenance Results * Screening Mammogram Bilateral W Sunshine (06/21/2024 4:11 PM SHINE WORKER) Anatomical Region Laterality Modality Breast Bilateral Mammography Impressions 06/21/2024 4:49 PM SHINE WORKER BI-RADS ATLAS category (overall): 1 - Negative There is no mammographic evidence of malignancy. A 1 year screening mammogram is recommended. The patient has been or will be contacted. We recommend annual screening mammography for women at average risk of breast cancer beginning at age 40, based on guidelines of the [place] [employer] (ACR Practice Parameter for the Performance of Screening and Diagnostic Mammography) and [place]. For women with and elevated risk of breast cancer, please refer to the ACR Practice Parameter for specific screening recommendations. The patient will be entered into a reminder system with a target due date of 1 year for her next screening exam. Narrative 06/21/2024 4:49 PM SHINE WORKER Screening Mammogram Bilateral W Sunshine: 06/21/24 The [...] * Pap, reflex HPV (05/10/2024 3:39 PM SHINE WORKER) CLINICAL INFORMATION: [facility] Comment:WELL WOMAN EXAM LMP [facility] Comment:09-02-23 Previous Pap [facility] Comment:NONE GIVEN Prev. Bx [facility] Comment:NONE GIVEN SOURCE: [facility] Comment:Cervix, Endocervix Pap, specimen adequacy [facility] Comment: Satisfactory for evaluation. Endocervical/transformation zone component present. HPV interp [facility] Comment: Cytology Results: Negative for intraepithelial lesion or malignancy. COMMENTS [facility] Comment: This Pap test has been evaluated with computer assisted technology. Body And Fender Worker [facility] Comment: AAM, CT(ASCP) CT Screening Location: [place] [address] [place] [address] Review buttonhole marker [facility] Comment: AUC, CT(ASCP) CT Screening Location: [address] [address] Comment [facility] Comment: EXPLANATORY NOTE: The Pap is [...] clinical information. Thin prep 05/10/2024 3:39 PM SHINE WORKER 05/12/2024 12:22 AM SHINE WORKER Nahid Wan MD LAB CYTOLOGY ORDERABLES Fi nal Result [facility] [address] [place] [address] from Last 3 Months or Most Recently Relevant to Health Maintenance Insurance [facility] CMR Care Teams Personnel Scheduler Relationship Specialty Start Date End Date Rachna Lema NP [address] [place] [id number] PCP - General Nurse Practitioner 06/21/24
--- OUTSIDE RECORDS SUMMARY | 2024-09-15 08:08 | XMS_ITS | Referral Summary ---
Author Organization [facility] [address] Address [address] [place] [address] Care Team Providers Care Mechanical Lead Name Role Phone Torey Rachna JULIO Primary Care Provider [phone] Encounters Date Type Department Care Team Description 06/21/2024 Results Follow-Up [facility] [address] [facility] [address] [place] [address] Nahid Wan MD 06/21/2024 4:02 PM RELAY MECHANIC - 06/21/2024 11:59 PM RELAY MECHANIC Hospital Encounter [facility] [address] [place] [address] Screening mammogram, encounter for Discharge [...] quit. Immunizations Immunization Administration Dates Next Due MotherKnows (J&J) SARS-CoV-2 Vaccination 07/09/2020 Pfizer SARS-CoV-2 Monovalent [...] on file Legal Sex Female 12:51 PM RELAY MECHANIC Gender Identity Not on file Sexual Orientation Not on file Last Filed Vital Signs Vital Sign Reading Time Taken Comments Blood Pressure 126/84 05/10/2024 2:54 PM RELAY MECHANIC Pulse - - Temperature - - Respiratory Rate - - Oxygen Saturation - - Inhaled Oxygen Concentration - - Weight 78 kg (172 lb) 05/10/2024 2:54 PM RELAY MECHANIC Height 175.3 cm (5' 9 ) 05/10/2024 2:54 PM RELAY MECHANIC Body Mass Index 25.4 05/10/2024 2:54 PM RELAY MECHANIC Plan of Treatment Not on file Procedures Procedure Name Priority Date/Time Associated Diagnosis Comments SCREENING MAMMOGRAM BILATERAL W SUNSHINE Schedule Routine, Read Routine (OP Routine) 06/21/2024 4:11 PM RELAY MECHANIC Screening mammogram, encounter for PAP, REFLEX HPV Routine 05/10/2024 3:39 PM RELAY MECHANIC Well woman exam from Last 3 Months or Most Recently Relevant to Health Maintenance Results * Screening Mammogram Bilateral W Sunshine (06/21/2024 4:11 PM RELAY MECHANIC) Anatomical Region Laterality Modality Breast Bilateral Mammography Impressions 06/21/2024 4:49 PM RELAY MECHANIC BI-RADS ATLAS category (overall): 1 - Negative There is no mammographic evidence of malignancy. A 1 year screening mammogram is recommended. The patient has been or will be contacted. We recommend annual screening mammography for women at average risk of breast cancer beginning at age 40, based on guidelines of the [employer] (ACR Practice Parameter for the Performance of Screening and Diagnostic Mammography) and [employer]. For women with and elevated risk of breast cancer, please refer to the ACR Practice Parameter for specific screening recommendations. The patient will be entered into a reminder system with a target due date of 1 year for her next screening exam. Narrative 06/21/2024 4:49 PM RELAY MECHANIC Screening Mammogram Bilateral W Sunshine: 06/21/24 The [...] * Pap, reflex HPV (05/10/2024 3:39 PM RELAY MECHANIC) CLINICAL INFORMATION: [facility] Comment:WELL WOMAN EXAM LMP [facility] Comment:09-02-23 Previous Pap [facility] Comment:NONE GIVEN Prev. Bx [facility] Comment:NONE GIVEN SOURCE: [facility] Comment:Cervix, Endocervix Pap, specimen adequacy [facility] Comment: Satisfactory for evaluation. Endocervical/transformation zone component present. HPV interp [facility] Comment: Cytology Results: Negative for intraepithelial lesion or malignancy. COMMENTS [facility] Comment: This Pap test has been evaluated with computer assisted technology. Mobile Home Mechanic [facility] Comment: AAM, CT(ASCP) CT Screening Location: [place] [address] [place] [address] Review community life director [facility] Comment: AUC, CT(ASCP) CT Screening Location: [address] [address] Comment [facility] Comment: EXPLANATORY NOTE: The Pap is a [...] clinical information. Thin prep 05/10/2024 3:39 PM RELAY MECHANIC 05/12/2024 12:22 AM RELAY MECHANIC Nahid Wan MD LAB CYTOLOGY ORDERABLES Fi nal Result [facility] [address] [place] [address] from Last 3 Months or Most Recently Relevant to Health Maintenance Insurance [facility] CMR Care Teams Mechanical Lead Relationship Specialty Start Date End Date Rcahna Lema NP [address] [place] [address] PCP - General Nurse Practitioner 06/21/24
[2024-09-15 19:10] LABS: Basophils Absolute Auto 0.1 K/mm3 (0.0-0.1); Basophils Percent Auto 1.1 % (0.2-1.2); Eosinophils Absolute Auto 0.2 K/mm3 (0-0.3); Hematocrit 43.4 % (37.0-47.0); Hemoglobin 13.9 g/dL (12.0-15.0); Immature Granulocyte Absolute 0.01 K/mm3 (0.00-0.031); Immature Granulocyte Percent A 0.2 % (0-0.5); Lymphocytes Absolute Auto 1.23 K/mm3 (0.9-3.2); Lymphocytes Percent Auto 23.1 % (18.3-44.2); Mean Corpuscular Hemoglobin 30.2 pg (26-34); Mean Corpuscular Volume 94.1 fl (80-100); Mean Platelet Volume 11.6 fl (7.4-10.4); Monocytes Absolute Auto 0.4 K/mm3 (0.1-0.6); Neutrophils Absolute Auto 3.5 K/mm3 (1.3-6.7); Neutrophils Percent Auto 65.6 % (45.5-73.1); Platelet Count Result 193 k/mm3 (150-375); Red Blood Count 4.61 M/mm3 (4.2-5.4); Red Cell Distribution Width 14.4 % (11.5-14.5); White Blood Count 5.3 K/mm3 (4.5-10.0)
[2024-09-15 19:47] LABS: Erythrocyte Sedimentation Rate 12 mm/hr (0-20)
[2024-09-15 19:51] LABS: Complement C3 82 mg/dL (88-165)
[2024-09-15 21:15] LABS: Alanine Aminotransferase 14 U/L (6-35); Albumin Level 4.1 g/dL (3.5-5.1); Alkaline Phosphatase 89 U/L (38-126); Anion Gap 9 mmol/L (4-12); Aspartate Amino Transferase 47 U/L (14-36); Bilirubin,Total 0.3 mg/dL (0.2-1.3); Blood Urea Nitrogen 12 mg/dL (7-17); CRP < 0.5 mg/dL (<1.0); Carbon Dioxide 24 mmol/L (22-30); Chloride 104 mmol/L (98-107); Estimated Glomerular Filt Rate 56; Glucose 88 mg/dL (65-110); Potassium 3.9 mmol/L (3.4-5.0); Sodium 137 mmol/L (137-145)
[2024-09-15 21:17] LABS: Hepatitis B Surface Antigen Negative (Negative)
[2024-09-15 21:35] LABS: Hepatitis C Virus Antibody Negative (Negative)
[2024-09-19 13:48] LABS: NIL 0.01 IU/mL; Quantiferon TB Plus, 1T NEGATIVE (NEGATIVE)
== END 2024-09-15 08:03 | disposition home or self-care (01) ==
PROVIDERS: PCP Nurse Practitioner Adult Health; Visit Provider Internal Medicine
DX: M32.9 Systemic lupus erythematosus, unspecified (principal)
CPT/HCPCS: 36415; 80053; 85025; 85652; 86140; 86160; 86225; 86480; 86803; 87340

== ENCOUNTER 2024-11-23 07:30 | Outpatient (CLI) | payer OTHER, SELFPAY ==
--- OUTSIDE RECORDS SUMMARY | 2024-11-23 07:33 | XMS_ITS ---
Author Organization [facility] Address [address], [place] [address] Care Team Providers Care Solar Sales Representative Name Role Phone Rylee Becker Unavailable [phone] Allergies Allergen (clinical drug ingredient) Drug/Non Drug [...] W/U Status Risk Notes Problem Rheumatoid arthritis (78307508) Rheumatoid arthritis, involving unspecified site, unspecified whether rheumatoid factor present (M06.9) Active confirmed Problem Systemic lupus erythematosus (84550288) SLE (systemic lupus erythematosus) (M32.9) Active confirmed Problem Headache (59809352) Headache (R51.9) Active con firmed Problem Fatigue (62079747) Fatigue (R53.83) Active conf irmed Problem Raynaud disease (564291983) Raynaud disease (I73.00) Active confirmed Problem Alopecia (33718392) Hair loss (L65.9) Active co nfirmed Problem Weight gain (386801137) Weight gain (R63.5) Active confirmed Problem Dry mouth (53432557) Dry mouth (R68.2) Active confirmed Problem Labored breathing (519447040) Labored breathing (R06.4) Active confirmed Problem Dyspnea (224837088) SOB (shortne ss of breath) (R06.02) Active confirmed Problem Osteoarthritis (857739575) OA (osteoarthritis) (M19.90) Active confirmed Problem Vitamin D deficiency (49483996) Vitamin D deficiency (E55.9) Active confirmed Problem Photosensitivity (68480049) Photosensitivity (L56.8) Active confirmed Problem Rash (701693698) Rash (R21) Active confirmed Problem 63812297 Systemic lupus erythematosus, unspecified SLE type, unspecified organ involvement status (M32.9) Active confirmed Vital Signs Height 69 in 09/30/2024 Weight 168 lbs 09/30/2024 BMI 24.81 kg/m2 09/30/2024 Height-cm 175.26 cm 09/30/2024 Weight-kg 76.2 kg 09/30/2024 Encounters Encounter Location Date Provider Diagnosis [address] [place], [place] [id number] 09/30/2024 Rylee Becker Systemic lupus erythematosus, unspecified SLE type, unspecified organ involvement status M32.9 ; Other watermelon inspector (current) drug therapy Z79.899 and Routine health [...] will begin Benylsta. Patient will be monitored custodial for symptom control and side effects. SCREENING: GREGORIO-SLEDAI: 10 LABS: QuantiFERON-TB Gold (09/15/2024): Negative Hepatitis B Surface Antigen (09/15/2024): Negative Systemic lupus erythematosus is chronic in nature with periods of remission and flares. Flares can be triggered by stress, infections, certain medications, and alcohol. 09/30/2024 Other custodial (current) drug therapy (ICD-10 - Z79.899) When [...] will begin Benylsta. Patient will be monitored custodial for symptom control and side effects. SCREENING: GREGORIO-SLEDAI: 10 LABS: QuantiFERON-TB Gold (09/15/2024): Negative Hepatitis B Surface Antigen (09/15/2024): Negative Systemic lupus erythematosus is chronic in nature with periods of remission and flares. Flares can be triggered by stress, infections, certain medications, and alcohol. Other custodial (current) drug therapy W hen on high-risk [...] unusual symptoms. Routine health maintenance https://www.c dc.gov/vaccines/schedules/down loads/adult/jthio-ydjzvujc-soxkhurv.pdf Progress Notes * Tyson GUILLERMOOB: [birth year] (54 yo F)Acc No.[id number]:09/30/2024 Patient: Yuliana LEE Provider: Milagro Becker :1970 A ge:53 Y S ex:Female Date:09/30/2024 Address:[facility] [address], [facility] Subjective: * Chief Complaints: * * HPI: [...] their health in consult with the patient's board layer. Biologic/small molecule agents affect human immunology can put patients at risk for various infections and malignancies. Proper monitoring with lab tests and an updated vaccination profile can minimize these risks. A HOC teamsite developer will be available to the patient for [...] status - M32.9 2 . O ther custodial (current) drug therapy - Z79.899 3 .?Routine health maintenance - Z00.00 Plan: * Treatment: 2. O ther watermelon inspector (current) drug therapy Notes:When on high-risk medications, [...] symptoms. 3. R outine health maintenance Notes:https://www.cdc.gov/vaccines/schedu les/downloads/adult/anjfq-zkxbxadn-ksuozyf e.pdf * Billing Information: * Visit Code: * Procedure Codes: Care Plan Details* * Electronic signature of DONOVAN Vora on 11/23/2024 at 07:33 AM CDT Sign off status: Pending * Provider: Milagro Becker Date: 09/30/2024 Generated for Madie Gann on: 11/23/2024 07:33 AM CDT History and Physical Notes * [...] their health in consult with the patient's board layer. Biologic/small molecule agents affect human immunology can put patients at risk for various infections and malignancies. Proper monitoring with lab tests and an updated vaccination profile can minimize these risks. A HOC teamsite developer will be available to the patient for medication management.
--- OUTSIDE RECORDS SUMMARY | 2024-11-23 07:33 | XMS_ITS | Patient Health Record ---
Author Organization [facility] Address [address], [place] [address] Care Team Providers Care Tourist Guide Name Role Phone Rylee Becker Unavailable [phone] Allergies Allergen (clinical drug ingredient) Drug/Non Drug Allergy documented on EMR Reaction Allergy Type Onset Date Status Penicillin Unknown Drug Allergy Active Reason For Referral No Information Medications Medication SIG (Take, Route, Frequency, Duration) [...] Problem Status W/U Status Risk Notes Problem Rash (048032359) Rash (R21) Active confirmed Problem Rheumatoid arthritis (39939582) Rheumatoid arthritis, involving unspecified site, unspecified whether rheumatoid factor present (M06.9) Active confirmed Problem 70640888 Systemic lupus erythematosus, unspecified SLE type, unspecified organ involvement status (M32.9) Active confirmed Problem Vitamin D deficiency (09695952) Vitamin D deficiency (E55.9) Active confirmed Problem Weight gain (392559354) Weight gain (R63.5) Active confirmed Problem Alopecia (73385351) Hair loss (L65.9) Active co nfirmed Problem Dyspnea (903254959) SOB (shortne ss of breath) (R06.02) Active confirmed Problem Dry mouth (80818284) Dry mouth (R68.2) Active confirmed Problem Systemic lupus erythematosus (85608984) SLE (systemic lupus erythematosus) (M32.9) Active confirmed Problem Fatigue (23584566) Fatigue (R53.83) Active conf irmed Problem Photosensitivity (45701473) Photosensitivity (L56.8) Active confirmed Problem Osteoarthritis (145233793) OA (osteoarthritis) (M19.90) Active confirmed Problem Raynaud disease (888888773) Raynaud disease (I73.00) Active confirmed Problem Labored breathing (797461585) Labored breathing (R06.4) Active confirmed Problem Headache (78163348) Headache (R51.9) Active con firmed Vital Signs Height-cm 175.26 cm 09/30/2024 Weight-kg 76.2 kg 09/30/2024 Height 69 in 09/30/2024 Weight 168 lbs 09/30/2024 BMI 24.81 kg/m2 09/30/2024 Encounters Encounter Location Date Provider Diagnosis [address] [place], [place] [id number] 09/30/2024 Rylee Becker Systemic lupus erythematosus, unspecified SLE type, unspecified organ involvement status M32.9 ; Other retirement (current) drug therapy Z79.899 and Routine health maintenance Z00.00 Assessments Encounter Date Diagnosis (ICD Code) Assessment Notes Treatment Notes Treatment Clinical Notes Section Notes 09/30/2024 Systemic lupus erythematosus, unspecified SLE type, unspecified organ involvement status (ICD-10 - M32.9) Ms. Nogueira is a 53year-old female with systemic lupus erythematosus, currently managed by Dr. Maurer. At this time, patient will begin Benylsta. 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 SCREENING: GREGORIO-SLEDAI: 10 LABS: QuantiFERON-TB Gold (09/15/2024): Negative Hepatitis B Surface Antigen (09/15/2024): Negative Systemic lupus erythematosus is chronic in nature with periods of remission and flares. Flares can be triggered by stress, infections, certain medications, and alcohol. 09/30/2024 Other retirement (current) drug therapy (ICD-10 - Z79.899) When [...] ult/adult-combine d-schedule.pdf 09/30/2024 Other Plan Of Treatment No Information Medical (General) History Medical History History ICD Code SLE (systemic lupus erythematosus) M32.9 Headache R51.9 Fatigue R53.83 Raynaud disease I73.00 Hair loss L65.9 Weight gain R63.5 Dry mouth R68.2 Labored breathing R06.4 SOB (shortness of breath) R06.02 OA (osteoarthritis) M19.90 Vitamin D deficiency E55.9 Photosensitivity L56.8 Rash R21
[2024-11-23 18:37] LABS: Alanine Aminotransferase 13 U/L (6-35); Albumin Level 4.1 g/dL (3.5-5.1); Alkaline Phosphatase 88 U/L (38-126); Anion Gap 7 mmol/L (4-12); Aspartate Amino Transferase 55 U/L (14-36); Bilirubin,Total 0.2 mg/dL (0.2-1.3); Blood Urea Nitrogen 13 mg/dL (7-17); Calcium 9.3 mg/dL (8.4-10.2); Carbon Dioxide 26 mmol/L (22-30); Chloride 105 mmol/L (98-107); Estimated Glomerular Filt Rate 50; Glucose 85 mg/dL (65-110); Potassium 4.0 mmol/L (3.4-5.0); Sodium 138 mmol/L (137-145); Total Protein 7.4 g/dL (6.3-8.2)
[2024-11-23 18:44] LABS: Free T4 Free Thyroxine 1.54 ng/dL (0.78-2.19)
[2024-11-23 19:09] LABS: Thyroid Stimulating Hormone 1.680 uIU/mL (0.465-4.680)
== END 2024-11-23 07:31 | disposition home or self-care (01) ==
LOC: ANHBWCLAB 07:32
PROVIDERS: PCP Nurse Practitioner Adult Health; Visit Provider Internal Medicine
DX: R74.8 Abnormal levels of other serum enzymes (principal); N28.9 Disorder of kidney and ureter, unspecified; R63.5 Abnormal weight gain; R79.89 Other specified abnormal findings of blood chemistry; E04.9 Nontoxic goiter, unspecified
CPT/HCPCS: 36415; 80069; 80076; 84439; 84443

== ENCOUNTER 2024-12-27 07:42 | Outpatient (CLI) | payer OTHER, SELFPAY ==
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
--- OUTSIDE RECORDS SUMMARY | 2024-12-23 07:17 | XMS_ITS ---
Author Organization [facility] Address [address] [place], [place] [address] Care Team Providers Care Director Gift Name Role Phone Rylee Becker Unavailable [phone] Medications Medication SIG (Take, Route, Frequency, Duration) Notes Start Date End Date Status Benlysta 200 MG/ML Inject 1 pen (200mg) Subcutaneous once a week for 84 days hpt-gnnpsgx-ros il 10/03/2024 06/08/2025 Active Social History Sex Assigned At : Social History Observation Description Sex Assigned At Female Encounters Encounter Location Date Provider Diagnosis [address] [place], [place] [phone] 12/23/2024 Rylee Becker Systemic lupus erythematosus, unspecified [...] a week for 84 days 10/03/2024 06/08/2025 ksf-ryfnddo-kmocp Progress Notes * Moe GUILLERMOWiliamOB: [birth year] (54 yo F)Acc No.[id number]:12/23/2024 Patient: Yuliana LEE :1970 A ge:54 Y S ex:Female Address:[address] [place], [address] * Refills Refill Benlysta Solution Auto-injector, 200 MG/ML, Subcutaneous, 12 ml, Inject 1 pen (200mg), once a week, 84 days, Refills=1 * true * Date: Generated for Madie santamaria/Shraddha/Devin on: 0 12/27/2024 07:48 AM CDT
--- OUTSIDE RECORDS SUMMARY | 2024-12-27 07:49 | XMS_ITS | Patient Health Record ---
Author Organization [facility] Address [address], [place] [address] Care Team Providers Care Yarn Spooler Name Role Phone Rylee Becker Unavailable [phone] Allergies Allergen (clinical drug ingredient) Drug/Non Drug Allergy documented on EMR Reaction Allergy Type Onset Date Status Penicillin Unknown Drug Allergy Active Reason For Referral No Information Medications Medication SIG (Take, Route, Frequency, Duration) Notes Start Date End Date Status Hydroxychloroquine Sulfate 200 MG as directed Orally Active Pantoprazole Sodium 20 MG 1 tablet 1/2 t o 1 hour before morning meal Orally Once a day Active Benlysta 200 MG/ML Inject 1 pen (200mg) Subcutaneous once a week for 84 days [facility] 10/03/2024 06/08/2025 Active Meloxicam Active Social History Tobacco Use: Social History Observation Description Date Details (start date - stop date) Current Smoker NA - NA Sex Assigned At : Social History Observation Description Sex Assigned At Female Tobacco Control (Standard) Question Answer Notes Tobacco use: Current smoker Problems Problem Type SNOMED Code ICD Code Onset Dates Problem Status W/U Status Risk Notes Problem Rash (997243190) Rash (R21) Active confirmed Problem Rheumatoid arthritis (63406201) Rheumatoid arthritis, involving unspecified site, unspecified whether rheumatoid factor present (M06.9) Active confirmed Problem 42329953 Systemic lupus erythematosus, unspecified SLE type, unspecified organ involvement status (M32.9) Active confirmed Problem Vitamin D deficiency (32969090) Vitamin D deficiency (E55.9) Active confirmed Problem Weight gain (685756571) Weight gain (R63.5) Active confirmed Problem Alopecia (43362793) Hair loss (L65.9) Active co nfirmed Problem Dyspnea (366545318) SOB (shortne ss of breath) (R06.02) Active confirmed Problem Dry mouth (65759566) Dry mouth (R68.2) Active confirmed Problem Systemic lupus erythematosus (91352071) SLE (systemic lupus erythematosus) (M32.9) Active confirmed Problem Fatigue (70405573) Fatigue (R53.83) Active conf irmed Problem Photosensitivity (51585766) Photosensitivity (L56.8) Active confirmed Problem Osteoarthritis (648536910) OA (osteoarthritis) (M19.90) Active confirmed Problem Raynaud disease (875579088) Raynaud disease (I73.00) Active confirmed Problem Labored breathing (721705531) Labored breathing (R06.4) Active confirmed Problem Headache (49288979) Headache (R51.9) Active con firmed Vital Signs Height-cm 175.26 cm 09/30/2024 Weight-kg 76.2 kg 09/30/2024 Height 69 in 09/30/2024 Weight 168 lbs 09/30/2024 BMI 24.81 kg/m2 09/30/2024 Encounters Encounter Location Date Provider Diagnosis [address] [facility] [place], [place] [id number] 09/30/2024 Rylee Espivet Systemic lupus erythematosus, unspecified SLE type, unspecified organ involvement status M32.9 ; Other group home (current) drug therapy Z79.899 and Routine health maintenance Z00.00 [address] [place], [place] [id number] 12/23/2024 Rylee Espurvoa Systemic lupus erythematosus, unspecified SLE type, unspecified [...] will begin Benylsta. 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 SCREENING: GREGORIO-SLEDAI: 10 LABS: QuantiFERON-TB Gold (09/15/2024): Negative Hepatitis B Surface Antigen (09/15/2024): Negative Systemic lupus erythematosus is chronic in nature with periods of remission and flares. Flares can be triggered by stress, infections, certain medications, and alcohol. 12/23/2024 Systemic lupus erythematosus, unspecified SLE type, unspecified organ involvement status (ICD-10 - M32.9) 09/30/2024 Other physical security manager (current) drug therapy (ICD-10 - Z79.899) [...]
[2024-12-27 19:01] LABS: Hematocrit 42.8 % (37.0-47.0); Hemoglobin 13.4 g/dL (12.0-15.0); Immature Granulocyte Percent A 0.2 % (0-0.5); Lymphocytes Absolute Auto 1.48 K/mm3 (0.9-3.2); Mean Corpuscular HGB Conc 31.3 g/dl (32-36); Mean Corpuscular Hemoglobin 29.8 pg (26-34); Mean Corpuscular Volume 95.3 fl (80-100); Nucleated Red Blood Cells Absolute Auto 0.000 K/mm3 (0.0-0.012); Nucleated Red Blood Cells Perc 0.0 % (0.0-0.2); Platelet Count Result 173 k/mm3 (150-375); Red Blood Count 4.49 M/mm3 (4.2-5.4); White Blood Count 5.0 K/mm3 (4.5-10.0)
[2024-12-27 19:12] LABS: Add Urine Microscopic? YES; Appearance Urine Clear (Clear); Glucose Urine UA Negative (Negative); Leukocyte Esterase Ur Trace LEU/UL (Negative); Nitrate Urine Negative (Negative); Non Pathogenic Casts 0-2; Specific Grav Ur 1.012 (1.001-1.035)
[2024-12-27 19:35] LABS: Total Protein Urine Random 6 mg/dL; Ur Ttl Prot Creatinine Ratio 0.07 mg/mg (0-0.20)
[2024-12-27 22:13] LABS: Alanine Aminotransferase 12 U/L (6-35); Albumin Level 4.1 g/dL (3.5-5.1); Alkaline Phosphatase 82 U/L (38-126); Anion Gap 7 mmol/L (4-12); Aspartate Amino Transferase 38 U/L (14-36); Bilirubin,Total 0.3 mg/dL (0.2-1.3); Blood Urea Nitrogen 14 mg/dL (7-17); CRP < 0.5 mg/dL (<1.0); Calcium 9.2 mg/dL (8.4-10.2); Carbon Dioxide 25 mmol/L (22-30); Chloride 104 mmol/L (98-107); Estimated Glomerular Filt Rate 51; Glucose 81 mg/dL (65-110); Potassium 4.2 mmol/L (3.4-5.0); Sodium 136 mmol/L (137-145); Total Protein 7.3 g/dL (6.3-8.2)
== END 2024-12-27 07:43 | disposition home or self-care (01) ==
PROVIDERS: PCP Nurse Practitioner Adult Health; Visit Provider Internal Medicine
DX: M32.9 Systemic lupus erythematosus, unspecified (principal)
CPT/HCPCS: 36415; 80053; 81001; 82570; 84156; 85025; 85652; 86140; 86160; 86225

== ENCOUNTER 2025-02-02 07:55 | Outpatient (CLI) | payer OTHER, SELFPAY ==
--- OUTSIDE RECORDS SUMMARY | 2024-09-30 09:10 | XMS_ITS ---
Author Organization [facility] Address [address], [place] [address] Care Team Providers Care Solar Technician Name Role Phone Rylee Becker Unavailable [phone] Allergies Allergen (clinical drug ingredient) Drug/Non Drug [...] W/U Status Risk Notes Problem Rheumatoid arthritis (38101121) Rheumatoid arthritis, involving unspecified site, unspecified whether rheumatoid factor present (M06.9) Active confirmed Problem Systemic lupus erythematosus (10241806) SLE (systemic lupus erythematosus) (M32.9) Active confirmed Problem Headache (48906207) Headache (R51.9) Active con firmed Problem Fatigue (60650263) Fatigue (R53.83) Active conf irmed Problem Raynaud disease (862991086) Raynaud disease (I73.00) Active confirmed Problem Alopecia (02288741) Hair loss (L65.9) Active co nfirmed Problem Weight gain (582328289) Weight gain (R63.5) Active confirmed Problem Dry mouth (28756621) Dry mouth (R68.2) Active confirmed Problem Labored breathing (340330003) Labored breathing (R06.4) Active confirmed Problem Dyspnea (175626515) SOB (shortne ss of breath) (R06.02) Active confirmed Problem Osteoarthritis (128702603) OA (osteoarthritis) (M19.90) Active confirmed Problem Vitamin D deficiency (55684276) Vitamin D deficiency (E55.9) Active confirmed Problem Photosensitivity (40391165) Photosensitivity (L56.8) Active confirmed Problem Rash (732279792) Rash (R21) Active confirmed Problem 94068378 Systemic lupus erythematosus, unspecified SLE type, unspecified organ involvement status (M32.9) Active confirmed Vital Signs Height 69 in 09/30/2024 Weight 168 lbs 09/30/2024 BMI 24.81 kg/m2 09/30/2024 Height-cm 175.26 cm 09/30/2024 Weight-kg 76.2 kg 09/30/2024 Encounters Encounter Location Date Provider Diagnosis [address] [place], [place] [id number] 09/30/2024 Rylee Becker Systemic lupus erythematosus, unspecified SLE type, unspecified organ involvement status M32.9 ; Other mcfp (current) drug therapy Z79.899 and Routine health [...] will begin Benylsta. Patient will be monitored mcfp for symptom control and side effects. SCREENING: GREGORIO-SLEDAI: 10 LABS: QuantiFERON-TB Gold (09/15/2024): Negative Hepatitis B Surface Antigen (09/15/2024): Negative Systemic lupus erythematosus is chronic in nature with periods of remission and flares. Flares can be triggered by stress, infections, certain medications, and alcohol. 09/30/2024 Other mcfp (current) drug therapy (ICD-10 - Z79.899) When [...] will begin Benylsta. Patient will be monitored dairy scientist for symptom control and side effects. SCREENING: GREGORIO-SLEDAI: 10 LABS: QuantiFERON-TB Gold (09/15/2024): Negative Hepatitis B Surface Antigen (09/15/2024): Negative Systemic lupus erythematosus is chronic in nature with periods of remission and flares. Flares can be triggered by stress, infections, certain medications, and alcohol. Other mcfp (current) drug therapy W hen on high-risk [...] unusual symptoms. Routine health maintenance https://www.c dc.gov/vaccines/schedules/down loads/adult/pfduz-jyizxuhx-wwirsurg.pdf Progress Notes * Tyson GUILLERMOOB: [birth year] (54 yo F)Acc No.[id number]:09/30/2024 Patient: Yuliana LEE Provider: Milagro Becker :1970 A ge:53 Y S ex:Female Date:09/30/2024 Address:[facility] [address], [facility] Subjective: * Chief Complaints: * * HPI: [...] their health in consult with the patient's varnish mixer. Biologic/small molecule agents affect human immunology can put patients at risk for various infections and malignancies. Proper monitoring with lab tests and an updated vaccination profile can minimize these risks. A HOC seam steamer will be available to the patient for [...] status - M32.9 2 . O ther mcfp (current) drug therapy - Z79.899 3 .?Routine health maintenance - Z00.00 Plan: * Treatment: 2. O ther dairy scientist (current) drug therapy Notes:When on high-risk medications, [...] symptoms. 3. R outine health maintenance Notes:https://www.cdc.gov/vaccines/schedu les/downloads/adult/bfsyq-fibwykgm-bnkwoes e.pdf * Billing Information: * Visit Code: * Procedure Codes: Care Plan Details* * Electronic signature of Peter Larson , GREASE AND TALLOW PUMPER-JOYA on 02/02/2025 at 08:04 AM CDT Sign off status: Pending * Provider: Milagro Becker Date: 0 09/30/2024 Generated for Madie Armstrong/Devin on: 1 08:04 AM CDT History and Physical Notes * [...] their health in consult with the patient's varnish mixer. Biologic/small molecule agents affect human immunology can put patients at risk for various infections and malignancies. Proper monitoring with lab tests and an updated vaccination profile can minimize these risks. A HOC seam steamer will be available to the patient for medication management.
--- OUTSIDE RECORDS SUMMARY | 2024-12-23 07:17 | XMS_ITS ---
Author Organization [facility] Address [address], [place] [address] Care Team Providers Care University Relations Vice President Name Role Phone Rylee Becker Unavailable [phone] Medications Medication SIG (Take, Route, Frequency, Duration) Notes Start Date End Date Status Benlysta 200 MG/ML Inject 1 pen (200mg) Subcutaneous once a week for 84 days gfw-xppeqjp-gnm il 10/03/2024 06/08/2025 Active Social History Sex Assigned At : Social History Observation Description Sex Assigned At Female Encounters Encounter Location Date Provider Diagnosis [address] [place], [place] [id number] 12/23/2024 Rylee Becker Systemic lupus erythematosus, unspecified SLE type, unspecified organ involvement status M32.9 Assessments Encounter Date Diagnosis (ICD Code) Assessment Notes Treatment Notes Treatment Clinical Notes Section Notes 12/23/2024 Systemic lupus erythematosus, unspecified SLE type, unspecified organ involvement status (ICD-10 - M32.9) Plan Of Treatment Medication Medication Name Sig Start Date Stop Date Notes Benlysta 200 MG/ML Inject 1 pen (200mg) Subcutaneous once a week for 84 days 10/03/2024 06/08/2025 lwd-tlswknh-oxkjp Progress Notes * Moe GUILLERMOWiliamOB: [birth year] (54 yo F)Acc No.[id number]:12/23/2024 Patient: Yuliana LEE :1970 A ge:54 Y S ex:Female Address:[address] [place], [address] * Refills Refill Benlysta Solution Auto-injector, 200 MG/ML, Subcutaneous, 12 ml, Inject 1 pen (200mg), once a week, 84 days, Refills=1 * true * Date: Generated for Madie santamaria/Shraddha/Devin on: 08:04 AM CDT
--- OUTSIDE RECORDS SUMMARY | 2025-02-02 08:04 | XMS_ITS | Clinical Summary ---
Author Organization [facility] Office Building [address] Address [address] [place] [address] Care Team Providers Care Sling Operator Name Role Phone Rachna Lema NP Primary Care Provider [phone] Allergies Active Allergy Reactions Criticality Noted Date [...] quit. Immunizations Immunization Administration Dates Next Due [employer] ([employer]) SARS-CoV-2 Vaccination 07/09/2020 Pfizer SARS-CoV-2 [...] Male Lupus anticoagulant disorder RA (rheumatoid arthritis) Smoking Family History Medical History Relation Name [...] on file Legal Sex Female 12:51 PM SKETCH ARTIST Gender Identity Not on file Sexual Orientation [...] Comments Blood Pressure 126/84 05/10/2024 2:54 PM SKETCH ARTIST Pulse - - Temperature - - Respiratory Rate - - Oxygen Saturation - - Inhaled Oxygen Concentration - - Weight 78 kg (172 lb) 05/10/2024 2:54 PM SKETCH ARTIST Height 175.3 cm (5' 9) 05/10/2024 2:54 PM SKETCH ARTIST Body Mass Index 25.4 05/10/2024 2:54 PM SKETCH ARTIST Plan of Treatment Health Maintenance Due Date Last Done Comments Colon Cancer Screening-Colonoscopy 1972 Hepatitis C Screening 1972 DTaP/Tdap/Td Vaccine (1 - Tdap) 10/25/1983 Hepatitis B Screening 1990 Pneumococcal vaccine <65 (1 of 2 - PCV) 10/25/1991 Zoster Vaccine (1 of 2) 10/25/1991 Covid-19 Vaccine (3 - season) 2025, 07/09/2020 Influenza Vaccine (#1) 2025 05/16/2021 Cervical Cancer Screening 05/10/20252024, 03/10/2023, 02/18/2022 Depression Screening 05/10/2025 05/10/2024 Regular Well Visit/Exam 18-64 05/10/2025, 03/10/2023, 02/18/2022 Breast Cancer Screening-Mammogram 06/21/2025 06/21/2024, 07/06/2023, 05/26/2022 Procedures Procedure Name Priority Date/Time Associated Diagnosis Comments SCREENING MAMMOGRAM BILATERAL W SUNSHINE Schedule Routine, Read Routine (OP Routine) 06/21/2024 4:11 PM SKETCH ARTIST Screening mammogram, encounter for PAP, REFLEX HPV Routine 05/10/2024 3:39 PM SKETCH ARTIST Well woman exam from Last 3 Months or Most Recently Relevant to Health Maintenance Results * Screening Mammogram Bilateral W Sunshine (06/21/2024 4:11 PM SKETCH ARTIST) Anatomical Region Laterality Modality Breast Bilateral Mammography Impressions 06/21/2024 4:49 PM SKETCH ARTIST BI-RADS ATLAS category (overall): 1 - Negative There is no mammographic evidence of malignancy. A 1 year screening mammogram is recommended. The patient has been or will be contacted. We recommend annual screening mammography for women at average risk of breast cancer beginning at age 40, based on guidelines of the [employer] (ACR Practice Parameter for the Performance of Screening and Diagnostic Mammography) and [employer]. For women with and elevated risk of breast cancer, please refer to the ACR Practice Parameter for specific screening recommendations. The patient will be entered into a reminder system with a target due date of 1 year for her next screening exam. Narrative 06/21/2024 4:49 PM SKETCH ARTIST Screening Mammogram Bilateral W Sunshine: 06/21/24 The [...] * Pap, reflex HPV (05/10/2024 3:39 PM SKETCH ARTIST) CLINICAL INFORMATION: [facility] [place] Comment:WELL WOMAN EXAM LMP [employer] [facility] [place] Comment:09-02-23 Previous Pap [facility] [place] Comment:NONE GIVEN Prev. Bx [facility] [place] Comment:NONE GIVEN SOURCE: [facility] [place] Comment:Cervix, Endocervix Pap, specimen adequacy [employer] [facility] [place] Comment: Satisfactory for evaluation. Endocervical/transformation zone component present. HPV interp [facility] [place] Comment: Cytology Results: Negative for intraepithelial lesion or malignancy. COMMENTS [facility] [place] Comment: This Pap test has been evaluated with computer assisted technology. 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 [address] Review apprentice architect [facility] Comment: AUC, CT(ASCP) CT Screening Location: [facility] [address] [place] [address] Comment [facility] Comment: EXPLANATORY NOTE: The Pap is a [...] clinical information. Thin prep 05/10/2024 3:39 PM SKETCH ARTIST 05/12/2024 12:22 AM SKETCH ARTIST us Nahid Wan MD LAB CYTOLOGY ORDERABLES Fi nal Result [facility] [address] [place] [address] from Last 3 Months or Most Recently Relevant to Health Maintenance Insurance [facility] Address: [facility] [id number] [id number] Care Teams Sling Operator Relationship Specialty Start Date End Date Rachna Lema NP [address] [place] [address] PCP - General Nurse Practitioner 06/21/24
--- OUTSIDE RECORDS SUMMARY | 2025-02-02 08:04 | XMS_ITS | Patient Health Record ---
Author Organization [address] Address [address] [place], [place] [id number] Care Team Providers Care Dev Manager Name Role Phone Rylee Becker Unavailable [phone] Allergies Allergen (clinical drug ingredient) Drug/Non Drug [...] Status W/U Status Risk Notes Problem Rash (175437451) Rash (R21) Active confirmed Problem Rheumatoid arthritis (69884622) Rheumatoid arthritis, involving unspecified site, unspecified whether rheumatoid factor present (M06.9) Active confirmed Problem 88113933 Systemic lupus erythematosus, unspecified SLE type, unspecified organ involvement status (M32.9) Active confirmed Problem Vitamin D deficiency (73632299) Vitamin D deficiency (E55.9) Active confirmed Problem Weight gain (045611582) Weight gain (R63.5) Active confirmed Problem Alopecia (35799864) Hair loss (L65.9) Active co nfirmed Problem Dyspnea (718484323) SOB (shortne ss of breath) (R06.02) Active confirmed Problem Dry mouth (52587586) Dry mouth (R68.2) Active confirmed Problem Systemic lupus erythematosus (38148619) SLE (systemic lupus erythematosus) (M32.9) Active confirmed Problem Fatigue (85350236) Fatigue (R53.83) Active conf irmed Problem Photosensitivity (10689309) Photosensitivity (L56.8) Active confirmed Problem Osteoarthritis (394209665) OA (osteoarthritis) (M19.90) Active confirmed Problem Raynaud disease (414869436) Raynaud disease (I73.00) Active confirmed Problem Labored breathing (927624995) Labored breathing (R06.4) Active confirmed Problem Headache (38649625) Headache (R51.9) Active con firmed Vital Signs Height-cm 175.26 cm 09/30/2024 Weight-kg 76.2 kg 09/30/2024 Height 69 in 09/30/2024 Weight 168 lbs 09/30/2024 BMI 24.81 kg/m2 09/30/2024 Encounters Encounter Location Date Provider Diagnosis [address] [facility] [place], [place] [id number] 09/30/2024 Rylee Espivet Systemic lupus erythematosus, unspecified SLE type, unspecified organ involvement status M32.9 ; Other intermediate (current) drug therapy Z79.899 and Routine health maintenance Z00.00 [address] [place], [place] [id number] 12/23/2024 Rylee Espurvoa Systemic lupus erythematosus, unspecified [...] will begin Benylsta. 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 SCREENING: GREGORIO-SLEDAI: 10 LABS: QuantiFERON-TB Gold (09/15/2024): Negative Hepatitis B Surface Antigen (09/15/2024): Negative Systemic lupus erythematosus is chronic in nature with periods of remission and flares. Flares can be triggered by stress, infections, certain medications, and alcohol. 12/23/2024 Systemic lupus erythematosus, unspecified SLE type, unspecified organ involvement status (ICD-10 - M32.9) 09/30/2024 Other long distance operator (current) drug therapy (ICD-10 - Z79.899) When [...]
[2025-02-02 19:27] LABS: Free T4 Free Thyroxine 1.47 ng/dL (0.78-2.19)
[2025-02-02 19:41] LABS: Thyroid Stimulating Hormone Reflex 1.830 uIU/mL (0.465-4.68)
== END 2025-02-02 07:56 | disposition home or self-care (01) ==
LOC: ANHBWCLAB 07:58
PROVIDERS: PCP Nurse Practitioner Adult Health; Visit Provider Nurse Practitioner Adult Health
DX: R79.89 Other specified abnormal findings of blood chemistry (principal)
CPT/HCPCS: 36415; 84439; 84443

== ENCOUNTER 2025-03-22 12:33 | Outpatient (CLI) | payer OTHER, SELFPAY ==
--- OUTSIDE RECORDS SUMMARY | 2024-09-30 08:10 | XMS_ITS ---
Author Organization [address] Address [address], [place] [id number] Care Team Providers Care Route Delivery Service Driver Name Role Phone Rylee Becker Unavailable [phone] Allergies Allergen (clinical drug ingredient) Drug/Non Drug Allergy documented on EMR Reaction Allergy Type Onset Date Status Penicillin Unknown Drug Allergy Active Medications Medication SIG (Take, Route, Frequency, Duration) Notes Start Date End Date Status Benlysta 200 MG/ML Inject 1 pen (200mg) Subcutaneous once a week; Duration: 84 days 10/03/2024 12/26/2024 Active Hydroxychloroquine Sulfate 200 MG as directed Orally Active Pantoprazole Sodium 20 MG 1 tablet 1/2 t o 1 hour before morning meal Orally Once a day Active Meloxicam Active Social History Tobacco Use: Social History Observation Description Date Details (start date - stop date) Current Smoker NA - NA Sex Assigned At : Social History Observation Description Sex Assigned At Female Tobacco Control (Standard) Question Answer Notes Tobacco use: Current smoker Problems Problem Type SNOMED Code ICD Code Onset Dates Problem Status W/U Status Risk Notes Problem Rheumatoid arthritis (35324443) Rheumatoid arthritis, involving unspecified site, unspecified whether rheumatoid factor present (M06.9) Active confirmed Problem Systemic lupus erythematosus (58669252) SLE (systemic lupus erythematosus) (M32.9) Active confirmed Problem Headache (27138715) Headache (R51.9) Active con firmed Problem Fatigue (18386270) Fatigue (R53.83) Active conf irmed Problem Raynaud disease (707528720) Raynaud disease (I73.00) Active confirmed Problem Alopecia (99896059) Hair loss (L65.9) Active co nfirmed Problem Weight gain (313490682) Weight gain (R63.5) Active confirmed Problem Dry mouth (76800654) Dry mouth (R68.2) Active confirmed Problem Labored breathing (443483125) Labored breathing (R06.4) Active confirmed Problem Dyspnea (399814597) SOB (shortne ss of breath) (R06.02) Active confirmed Problem Osteoarthritis (612686104) OA (osteoarthritis) (M19.90) Active confirmed Problem Vitamin D deficiency (55626530) Vitamin D deficiency (E55.9) Active confirmed Problem Photosensitivity (21127135) Photosensitivity (L56.8) Active confirmed Problem Rash (889517794) Rash (R21) Active confirmed Problem Systemic lupus erythematosus (02269955) Systemic lupus erythematosus, unspecified SLE type, unspecified organ involvement status (M32.9) Active confirmed Vital Signs Height 69 in 09/30/2024 Weight 168 lbs 09/30/2024 BMI 24.81 kg/m2 09/30/2024 Height-cm 175.26 cm 09/30/2024 Weight-kg 76.2 kg 09/30/2024 Encounters Encounter Location Date Provider Diagnosis [address] [place], [place] [id number] 09/30/2024 Rylee Eugenio Systemic lupus erythematosus, unspecified SLE type, unspecified organ involvement status M32.9 ; Other intermediate project manager (current) drug therapy Z79.899 and Routine health maintenance Z00.00 Assessments Encounter Date Diagnosis (ICD Code) Assessment Notes Treatment Notes Treatment Clinical Notes Section Notes 09/30/2024 Systemic lupus erythematosus, unspecified SLE type, unspecified organ involvement status (ICD-10 - M32.9) Ms. Guillermo is a 53year-old female with systemic lupus erythematosus, currently managed by Dr. Maurer. At this time, patient will begin Benylsta. Patient will be monitored penitentiary for symptom control and side effects. SCREENING: GREGORIO-SLEDAI: 10 LABS: QuantiFERON-TB Gold (09/15/2024): Negative Hepatitis B Surface Antigen (09/15/2024): Negative Systemic lupus erythematosus is chronic in nature with periods of remission and flares. Flares can be triggered by stress, infections, certain medications, and alcohol. 09/30/2024 Other intermediate project manager (current) drug therapy (ICD-10 - Z79.899) When on high-risk medications, patient must be vigilant about any new symptoms and understand the risks and side effects of their treatment. Biologic/small molecule medications can have significant side effects that may require blood test monitoring on a regular basis. Patient to contact providers for fever, chills, night sweats, malaise, abdominal pain, weakness, fatigue, headaches, infections, difficulty breathing or persistent cough, new skin lesions, or other unusual symptoms. 09/30/2024 Routine health maintenance (ICD-10 - Z00.00) https://www.cdc.g ov/vaccines/sched ules/downloads/ad ult/adult-combine d-schedule.pdf 09/30/2024 Other Plan Of Treatment Medication Medication Name Sig Start Date Stop Date Notes Benlysta 200 MG/ML Inject 1 pen (200mg) Subcutaneous once a week; Duration: 84 days 10/03/2024 12/26/2024 Treatment Notes Assessment Notes Systemic lupus erythematosus , unspecified SLE type, unspecified organ involvement status Ms. Guillermo is a 53year-old female with systemic lupus erythematosus, currently managed by Dr. Maurer. At this time, patient will begin Benylsta. Patient will be monitored penitentiary for symptom control and side effects. SCREENING: GREGORIO-SLEDAI: 10 LABS: QuantiFERON-TB Gold (09/15/2024): Negative Hepatitis B Surface Antigen (09/15/2024): Negative Systemic lupus erythematosus is chronic in nature with periods of remission and flares. Flares can be triggered by stress, infections, certain medications, and alcohol. Other intermediate project manager (current) drug therapy W hen on high-risk medications, patient must be vigilant about any new symptoms and understand the risks and side effects of their treatment. Biologic/small molecule medications can have significant side effects that may require blood test monitoring on a regular basis. Patient to contact providers for fever, chills, night sweats, malaise, abdominal pain, weakness, fatigue, headaches, infections, difficulty breathing or persistent cough, new skin lesions, or other unusual symptoms. Routine health maintenance https://www.c dc.gov/vaccines/schedules/down loads/adult/ocaod-dremmfaz-jafyfhip.pdf Progress Notes * Tyson GUILLERMOOB: [birth year] (54 yo F)Acc No.[id number]:09/30/2024 Patient: Yuliana LEE Provider: Milagro Becker :1970 A ge:53 Y S ex:Female Date:09/30/2024 Address:[facility] [address], [place] [address] Subjective: * Chief Complaints: * * HPI: T elemedicine: Ms. Guillermo is a 53year-old female with systemic lupus erythematosus, currently managed by Dr. Maurer. Patient's past medical history is notable for DE LA TORRE, fatigue, raynauds, hair loss, weight gain, dry mouth, teeth breakage, labored breathing, SOB, kidney enzyme abnormalities, OA, vitamin D deficiency and photosensitivity rashes. Family history notable for ILD. RHEUMATOID HISTORY: The patient reports joint pain, swelling, and stiffness specifically in shoulders, elbows, hips, and knees. She is currently on treatment with HCQ and Meloxicam. Patient denies any previous tried and failed biologics. Patient has not used MTX in the past. The patient does occasionally take OTC meds, including Tylenol.Patient denies hospitalizations or ER visits within the last six months. Patient was called to verify their medical status and their prescription status. At this time, there are no changes to our prescription plans. [facility] is assisting as a specialty team in monitoring their health in consult with the patient's spiral gear generator. Biologic/small molecule agents affect human immunology can put patients at risk for various infections and malignancies. Proper monitoring with lab tests and an updated vaccination profile can minimize these risks. A HOC application development team lead will be available to the patient for medication management. * Medical History: S LE (systemic lupus erythematosus), Headache, Fatigue, Raynaud disease, Hair loss, Weight gain, Dry mouth, Labored breathing, SOB (shortness of breath), OA (osteoarthritis), Vitamin D deficiency, Photosensitivity, Rash. * Hospitalization/Major Diagno stic Procedure: D enies Past Hospitalization. * Family History: M other: ILD. * Social History: T obacco Use: T obacco Control (Standard) T obacco use: C urrent smoker * Medications: T aking Meloxicam , Taking Hydroxychloroquine Sulfate 200 MG Tablet as directed Orally , Taking Pantoprazole Sodium 20 MG Tablet Delayed Release 1 tablet 1/2 to 1 hour before morning meal Orally Once a day , Medication List reviewed and reconciled with the patient * Allergies: P enicillin. Objective: * Vitals: W t:168lbs, Wt-k.2 kg, Ht:69in, Ht-cm: 175.26 cm, BMI:24.81Index, Body Surface Area: 1.92. Assessment: * Assessment: 1. S ystemic lupus erythematosus, unspecified SLE type, unspecified organ involvement status - M32.9 2 . O ther intermediate project manager (current) drug therapy - Z79.899 3 .?Routine health maintenance - Z00.00 Plan: * Treatment: 2. O ther penitentiary (current) drug therapy Notes:When on high-risk medications, patient must be vigilant about any new symptoms and understand the risks and side effects of their treatment. Biologic/small molecule medications can have significant side effects that may require blood test monitoring on a regular basis. Patient to contact providers for fever, chills, night sweats, malaise, abdominal pain, weakness, fatigue, headaches, infections, difficulty breathing or persistent cough, new skin lesions, or other unusual symptoms. 3. R outine health maintenance Notes:https://www.cdc.gov/vaccines/schedu les/downloads/adult/yoyez-fcvoiiyi-xlctavl e.pdf * Billing Information: * Visit Code: * Procedure Codes: Care Plan Details* * Electronic signature of Peter Larson , SENIOR PENSIONS ADMINISTRATOR-JOYA on 03/22/2025 at 05:53 PM LATHE PULLER Sign off status: Pending * Provider: Milagro Becker Date: 0 09/30/2024 Generated for Madie Armstrong/Devin on: 1 05/22/2024 05:53 PM LATHE PULLER History and Physical Notes * HPI (History of Present Illness) Category Sub-Category Detail Notes Category Not es Telemedicine Ms. Guillermo is a 53year-old female with systemic lupus erythematosus, currently managed by Dr. Maurer. Patient's past medical history is notable for DE LA TORRE, fatigue, raynauds, hair loss, weight gain, dry mouth, teeth breakage, labored breathing, SOB, kidney enzyme abnormalities, OA, vitamin D deficiency and photosensitivity rashes. Family history notable for ILD. RHEUMATOID HISTORY: The patient reports joint pain, swelling, and stiffness specifically in shoulders, elbows, hips, and knees. She is currently on treatment with HCQ and Meloxicam. Patient denies any previous tried and failed biologics. Patient has not used MTX in the past. The patient does occasionally take OTC meds, including Tylenol.Patient denies hospitalizations or ER visits within the last six months. Patient was called to verify their medical status and their prescription status. At this time, there are no changes to our prescription plans. [facility] is assisting as a specialty team in monitoring their health in consult with the patient's spiral gear generator. Biologic/small molecule agents affect human immunology can put patients at risk for various infections and malignancies. Proper monitoring with lab tests and an updated vaccination profile can minimize these risks. A [facility]OC application development team lead will be available to the patient for medication management.
--- OUTSIDE RECORDS SUMMARY | 2025-03-22 17:53 | XMS_ITS | Clinical Summary ---
Author Organization [facility] Medical [facility] Building [facility] Address [address] [place] [address] Care Team Providers Care Mine Captain Name Role Phone Rachna Lema NP Primary Care Provider [phone] Allergies Active Allergy Reactions Criticality Noted Date [...] quit. Immunizations Immunization Administration Dates Next Due [employer] ([employer]) SARS-CoV-2 Vaccination 07/09/2020 Pfizer SARS-CoV-2 Monovalent [...] on file Legal Sex Female 12:51 PM CHIEF GAUGER Gender Identity Not on file Sexual Orientation [...] Comments Blood Pressure 126/84 05/10/2024 2:54 PM CHIEF GAUGER Pulse - - Temperature - - Respiratory Rate - - Oxygen Saturation - - Inhaled Oxygen Concentration - - Weight 78 kg (172 lb) 05/10/2024 2:54 PM CHIEF GAUGER Height 175.3 cm (5' 9) 05/10/2024 2:54 PM CHIEF GAUGER Body Mass Index 25.4 05/10/2024 2:54 PM CHIEF GAUGER Plan of Treatment Health Maintenance Due Date [...] Read Routine (OP Routine) 06/21/2024 4:11 PM CHIEF GAUGER Screening mammogram, encounter for PAP, REFLEX HPV Routine 05/10/2024 3:39 PM CHIEF GAUGER Well woman exam from Last 3 Months or Most Recently Relevant to Health Maintenance Results * Screening Mammogram Bilateral W Sunshine (06/21/2024 4:11 PM CHIEF GAUGER) Anatomical Region Laterality Modality Breast Bilateral Mammography Impressions 06/21/2024 4:49 PM CHIEF GAUGER BI-RADS ATLAS category (overall): 1 - Negative There is no mammographic evidence of malignancy. A 1 year screening mammogram is recommended. The patient has been or will be contacted. We recommend annual screening mammography for women at average risk of breast cancer beginning at age 40, based on guidelines of the [employer] (ACR Practice Parameter for the Performance of Screening and Diagnostic Mammography) and [employer]. For women with and elevated risk of breast cancer, please refer to the ACR Practice Parameter for specific screening recommendations. The patient will be entered into a reminder system with a target due date of 1 year for her next screening exam. Narrative 06/21/2024 4:49 PM CHIEF GAUGER Screening Mammogram Bilateral W Sunshine: 06/21/24 The [...] * Pap, reflex HPV (05/10/2024 3:39 PM CHIEF GAUGER) CLINICAL INFORMATION: [facility] [place] Comment:WELL WOMAN EXAM LMP [facility] [place] Comment:09-02-23 Previous Pap [facility] [place] Comment:NONE GIVEN Prev. Bx [facility] [place] Comment:NONE GIVEN SOURCE: [facility] [place] Comment:Cervix, Endocervix Pap, specimen adequacy [facility] [place] Comment: Satisfactory for evaluation. Endocervical/transformation zone component present. HPV interp [facility] [place] Comment: Cytology Results: Negative for intraepithelial lesion or malignancy. COMMENTS [facility] [place] Comment: This Pap test has been evaluated with computer assisted technology. [employer] [place] Comment: AAM, CT(ASCP) CT Screening Location: [facility] [address] [place] [address] Review economic development director [facility] Comment: AUC, CT(ASCP) CT Screening Location: [facility] [address] [place] [address] Comment [facility] Comment: EXPLANATORY NOTE: The Pap is [...] clinical information. Thin prep 05/10/2024 3:39 PM CHIEF GAUGER 05/12/2024 12:22 AM CHIEF GAUGER us Nahid Wan MD LAB CYTOLOGY ORDERABLES Fi nal Result [facility] [address] [place] [address] from Last 3 Months or Most Recently Relevant to Health Maintenance Insurance [facility] CMR Care Teams Mine Captain Relationship Specialty Start Date End Date Rachna Lema NP [address] [place] [address] PCP - General Nurse Practitioner 06/21/24
--- OUTSIDE RECORDS SUMMARY | 2025-03-22 17:53 | XMS_ITS | Patient Health Record ---
Author Organization [address] Address [address], [place] [id number] Care Team Providers Care Vmware Engineer Name Role Phone Rylee Becker Unavailable [phone] Allergies Allergen (clinical drug ingredient) Drug/Non Drug [...] Subcutaneous once a week; Duration: 84 days [facility] 10/03/2024 06/08/2025 Active [...] Status W/U Status Risk Notes Problem Rash (458570752) Rash (R21) Active confirmed Problem Rheumatoid arthritis (33234322) Rheumatoid arthritis, involving unspecified site, unspecified whether rheumatoid factor present (M06.9) Active confirmed Problem Systemic lupus erythematosus (37456489) Systemic lupus erythematosus, unspecified SLE type, unspecified organ involvement status (M32.9) Active confirmed Problem Vitamin D deficiency (19282115) Vitamin D deficiency (E55.9) Active confirmed Problem Weight gain (258146161) Weight gain (R63.5) Active confirmed Problem Alopecia (65040368) Hair loss (L65.9) Active co nfirmed Problem Dyspnea (526550580) SOB (shortne ss of breath) (R06.02) Active confirmed Problem Dry mouth (72893407) Dry mouth (R68.2) Active confirmed Problem Systemic lupus erythematosus (18306055) SLE (systemic lupus erythematosus) (M32.9) Active confirmed Problem Fatigue (77583061) Fatigue (R53.83) Active conf irmed Problem Photosensitivity (85123569) Photosensitivity (L56.8) Active confirmed Problem Osteoarthritis (595263718) OA (osteoarthritis) (M19.90) Active confirmed Problem Raynaud disease (555018667) Raynaud disease (I73.00) Active confirmed Problem Labored breathing (928761793) Labored breathing (R06.4) Active confirmed Problem Headache (65915535) Headache (R51.9) Active con firmed Vital Signs Height-cm 175.26 cm 09/30/2024 Weight-kg 76.2 kg 09/30/2024 Height 69 in 09/30/2024 Weight 168 lbs 09/30/2024 BMI 24.81 kg/m2 09/30/2024 Encounters Encounter Location Date Provider Diagnosis [address] [place], [place] [id number] 09/30/2024 Rylee Espurvoa Systemic lupus erythematosus, unspecified SLE type, unspecified organ involvement status M32.9 ; Other rat exterminator (current) drug therapy Z79.899 and Routine health maintenance Z00.00 [address] [place], [place] [id number] 12/23/2024 Rylee Espurvoa Systemic lupus erythematosus, unspecified [...] will begin Benylsta. Patient will be monitored halfway for symptom control and side effects. SCREENING: GREGORIO-SLEDAI: 10 LABS: QuantiFERON-TB Gold (09/15/2024): Negative Hepatitis B Surface Antigen (09/15/2024): Negative Systemic lupus erythematosus is chronic in nature with periods of remission and flares. Flares can be triggered by stress, infections, certain medications, and alcohol. 12/23/2024 Systemic lupus erythematosus, unspecified SLE type, unspecified organ involvement status (ICD-10 - M32.9) 09/30/2024 Other halfway (current) drug therapy (ICD-10 - Z79.899) When [...]
[2025-03-22 18:52] LABS: Total Protein Urine Random 11 mg/dL; Ur Ttl Prot Creatinine Ratio 0.36 mg/mg (0-0.20)
[2025-03-22 18:59] LABS: Hematocrit 41.8 % (37.0-47.0); Hemoglobin 13.6 g/dL (12.0-15.0); Immature Granulocyte Percent A 0.2 % (0-0.5); Lymphocytes Absolute Auto 1.56 K/mm3 (0.9-3.2); Mean Corpuscular HGB Conc 32.5 g/dl (32-36); Mean Corpuscular Hemoglobin 30.6 pg (26-34); Mean Corpuscular Volume 93.9 fl (80-100); Nucleated Red Blood Cells Absolute Auto 0.000 K/mm3 (0.0-0.012); Nucleated Red Blood Cells Perc 0.0 % (0.0-0.2); Platelet Count Result 184 k/mm3 (150-375); Red Blood Count 4.45 M/mm3 (4.2-5.4); White Blood Count 6.0 K/mm3 (4.5-10.0)
[2025-03-22 19:09] LABS: Alanine Aminotransferase 13 U/L (6-35); Albumin Level 4.5 g/dL (3.5-5.1); Alkaline Phosphatase 85 U/L (38-126); Anion Gap 6 mmol/L (4-12); Aspartate Amino Transferase 48 U/L (14-36); Bilirubin,Total 0.5 mg/dL (0.2-1.3); Blood Urea Nitrogen 13 mg/dL (7-17); CRP < 0.5 mg/dL (<1.0); Calcium 8.9 mg/dL (8.4-10.2); Carbon Dioxide 27 mmol/L (22-30); Chloride 103 mmol/L (98-107); Estimated Glomerular Filt Rate 52; Glucose 87 mg/dL (65-110); Potassium 3.9 mmol/L (3.4-5.0); Sodium 136 mmol/L (137-145); Total Protein 7.7 g/dL (6.3-8.2)
[2025-03-22 19:18] LABS: Add Urine Microscopic? NO; Appearance Urine Clear (Clear); Glucose Urine UA Negative (Negative); Leukocyte Esterase Ur Negative LEU/UL (Negative); Nitrate Urine Negative (Negative); Specific Grav Ur 1.006 (1.001-1.035)
== END 2025-03-22 12:34 | disposition home or self-care (01) ==
PROVIDERS: PCP Nurse Practitioner Adult Health; Visit Provider Internal Medicine
DX: M25.50 Pain in unspecified joint (principal)
CPT/HCPCS: 36415; 80053; 81003; 82570; 84156; 85025; 85652; 86140; 86160